=== PATIENT | female | born 1940 | race Caucasian/White ===

== ENCOUNTER 2017-10-27 17:28 | Inpatient (IN) ==
--- NOTE | 2017-10-27 18:00 | Emergency Department Note ---
Disposition Clinical Impression: Compression fracture Fall Qualifiers: Encounter type: initial encounter Qualified Code(s): W19.XXXA - Unspecified fall, initial encounter Dementia Qualifiers: Dementia type: unspecified type Dementia behavioral disturbance: without behavioral disturbance Qualified Code(s): F03.90 - Unspecified dementia without behavioral disturbance Disposition: Admitted As Inpatient Condition: Fair Time of Disposition: 20:00 Fall HPI - General Chief Complaint: ED Fall Stated Complaint: Fall Time Seen by Provider: 10/27/17 17:32 Source: EMS Mode of arrival: EMS Limitations: other (dementia) Nursing Notes Reviewed: Yes Vital Signs Reviewed: Yes - History of Present Illness Pt Subjective Complaint: fall Onset (ago): day(s) Fall From: other ([facility]) Fall Witnessed: no Place Fall Occurred: fdc/SNF Loss of Consciousness: unsure Prolonged Down Time?: unclear Symptoms Prior to Fall: other (No lightheadness. No dizziness ) Context: other (Pt unsure of context. Unsure if she tripped/slipped ) Quality: other Associated symptoms (after fall): Reports: chest pain ("little"), other ( Patient is NOT on anticoagulation medication. ). Denies: lightheaded - Related Data Previous Rx's Medication Instructions Recorded Lidocaine Patch [Lidoderm 5% patch] 1 each TP BID PRN #12 adh..patch 08/24/17 Allergies Allergy/AdvReac Type Severity Reaction Status Date / Time Penicillins Allergy See Verified 08/24/17 06:37 Comments morphine AdvReac See Verified 01/29/15 10:01 Comments Constitutional: Denies: fever, chills Cardiovascular: Reports: as per HPI, chest pain, other (falls) Respiratory: Denies: hemoptysis Gastrointestinal: Reports: diarrhea. Denies: hematemesis, melena, hematochezia Genitourinary: Reports: other (wears diapers ). Denies: hematuria Musculoskeletal: Reports: other (no hip pain) Integumentary: Reports: other (chronic psoriasis plaques ) Neurological: Reports: as per HPI, other (dementia. No tingling. Denies lightheadeness. Denies dizziness ). Denies: numbness Fall PMH - Past Medical History Medical history: Reports: cancer, GERD, hyperlipidemia, hypertension, thyroid disease Surgical history: Reports: cancer surgery Psychiatric history: Reports: no psych history PACKING ROOM SUPERVISOR history: Reports: no PACKING ROOM SUPERVISOR history - Social History Smoking Status: Former smoker Alcohol use: Reports: none Drug use: Reports: none Physical Exam - General Limitations: no limitations, altered mental status General appearance: alert, in no apparent distress - Expanded Head Exam Head exam physicial: Absent: laceration, abrasion, contusion, raccoon eyes, Smith's sign - Eye Eye exam: Present: PERRL, other (Full range of EOM. ) - Neck Neck exam: Present: full ROM. Absent: tenderness - Chest Chest inspection: Present: symmetric chest wall rise. Absent: tenderness - Respiratory Respiratory exam: Absent: respiratory distress, wheezes, accessory muscle use - Cardiovascular Cardiovascular exam: Present: normal rhythm, bradycardia, +S1, +S2 - Abdominal Exam Abdominal exam: Present: soft, Non-Tender, other (No flank echymossis b/l. ). Absent: guarding, rebound, rigidity - Extremities Exam Extremities exam: Present: normal capillary refill (capillary refill > 2 secons ), other (erythematous plaque with coarse scales). Absent: pedal edema - Neurological Exam Neurological exam: Present: other (Patient not following directions for assessment for PHAM or oustretching hand. Initial motion of PHAM slow, yet fluid, then patient progressing to clapping hands. Able to follow commands of holding extremities against gravity and resistance. ) - Expanded Neurological Exam Patient oriented to: Present: person Speech: Present: fluid speech Cranial nerves: EOM function (II, III, IV, ): Normal, spinal accessory function (XI): Normal, tongue deviation (XII): Normal Motor strength - LUE: 4/5 Motor strength - RUE: 4/5 Motor strength - LLE: 4/5 Motor strength - RLE: 4/5 Coma Scale Eye Opening: Spontaneous Coma Scale Motor Response: Obeys Commands Coma Scale Verbal Response: Oriented Coma Scale Total: 15 - Psychiatric Psychiatric exam: Present: normal affect Course Course Narrative: Course of Re-evaluations while in ED - Patient presents a significant fall risk , with last 3 falls at the assisted living care unwitnessed, per daughter-in law. Multiple risk factors including past history of a fall in cognitive impairment, patient on tramadol outpatient. As falls unwitnessed, unclear fall associated with syncopes. Imaging reviewed with attending and patients's POA. Due to elevated risk for recurrent falls, will consider hospitalization. Discussed with ISIDORO, son, he is amenable with hospitalization at this time. Patient is amenable to hospitalization as well. - Reevaluation(s) Reevaluation #1: approx 19:30 -20:00 Attending at bedside. Discussed recommendation for hospitalization, including review of placement. Patient and family amenable to hospitalizations. Vital Signs Temperature 98.6 F 10/27/17 17:32 Pulse Rate 57 10/27/17 17:32 Respiratory Rate 16 10/27/17 17:32 Blood Pressure 174/87 10/27/17 17:32 O2 Sat by Pulse Oximetry 94 10/27/17 17:32 Temperature 98.6 F 10/27/17 22:13 Pulse Rate 57 10/27/17 22:13 Respiratory Rate 14 10/27/17 22:13 Blood Pressure 171/82 10/27/17 22:13 O2 Sat by Pulse Oximetry 93 10/27/17 22:13 Oxygen Delivery Oxygen Delivery Room Air Fall - MDM Narrative Medical decision making narrative: 65-year-old female ascending following 3 falls within the last 24 hours. In ED , bradycardia noted. Multiple risk factors identified including past history of a fall in cognitive impairment, patient on tramadol as outpatient. As falls unwitnessed, unclear fall associated with syncopes. Radiologic imaging obtained due to patient unable to clearly state pain and recount episodes. Patient remains at elevated risk for falls, will require hospitalization. Discussed with ISIDORO, son, he is amenable with hospitalization at this time. Patient is amenable to hospitalization as well. - Lab Data Lab results reviewed: Yes I reviewed the patient's lab results. Result diagrams: 10/27/17 18:06 10/27/17 18:06 Lab Results 10/27/17 10/27/17 Range/Units 18:06 18:06 WBC 6.6 (4.3-11.1) K/mcL RBC 4.63 (3.82-4.97) M/mcL Hgb 13.8 (11.5-15.4) g/dL Hct 41.8 (35.3-44.9) % MCV 90.3 (83.0-100.0) fL MCH 29.8 (28.0-33.3) pg MCHC 33.0 (31.6-35.5) g/dL RDW 14.3 (11.5-14.5) % Plt Count 195 (140-400) K/mcL MPV 10.5 (9.4-12.4) fL Immature Gran % 0.3 (0-4) % Seg Neutrophils % 66.5 % Lymphocytes % 21.7 % Monocytes % 7.7 % Eosinophils % 3.3 % Basophils % 0.5 % Neutrophils # 4.4 (1.6-8.9) K/mcL Lymphocytes # 1.4 (0.6-4.6) K/mcL Monocytes # 0.5 (0.0-1.3) K/mcL Eosinophils # 0.2 (0.0-0.6) K/mcL Basophils # 0.0 (0.0-0.2) K/mcL Sodium 136 (136-145) mEq/L Potassium 4.0 (3.5-5.1) mEq/L Chloride 105 (98-107) mEq/L Carbon Dioxide 26 (23-29) mEq/L BUN 24 H (8-23) mg/dL Creatinine 0.80 (0.60-1.20) mg/dL Est GFR ( Amer) > 60 (> 60) Est GFR (Non-Af Amer) > 60 (> 60) BUN/Creatinine Ratio 30 H (6-26) Glucose 86 (70-105) mg/dL Calculated Osmolality 285 (280-300) Calcium 9.1 (8.6-10.3) mg/dL Troponin I < 0.03 (< 0.04) ng/mL - Radiology Data Radiology results reviewed: Yes I reviewed the patient's radiology results. Impressions Cervical Spine CT 10/27/17 17:54 IMPRESSION: 1. No evidence of an acute fracture in the cervical spine. D/ / 10/27/2017 19:01:22 Cruz Harris MD / terry Interpreting Provider: Cruz Harris MD Chest X-Ray 10/27/17 17:54 IMPRESSION: No convincing evidence for acute cardiopulmonary pathology. Retrocardiac bowel containing hernia. D/ / Gonzales Andrade MD / Gonzales Andrade MD Interpreting Provider: Gonzales Andrade MD Head CT 10/27/17 17:54 IMPRESSION: No acute intracranial abnormality. D/ / Albert Sparrow MD / Albert Sparrow MD Interpreting Provider: Albert Sparrow MD Hip/Pelvis X-Ray 10/27/17 17:54 IMPRESSION: 1. No evidence of an acute fracture in the pelvis. If pain persists, the patient may benefit from an MRI, as this is more sensitive for the detection of occult fractures in osteopenic patient's. 2. Chronic right superior and inferior pubic rami fractures. D/ / 10/27/2017 18:28:09 Cruz Harris MD / [facility] Interpreting Provider: Cruz Harris MD Lumbar Spine X-Ray 10/27/17 18:44 IMPRESSION: Moderate to marked anterior wedge compression fracture of L1 new from 10/20/2016 but unchanged from 10/04/2017. No definite acute fracture. Multilevel degenerative disc disease and facet arthropathy similar to the prior study. Multiple irregular calcifications in a linear configuration in the right abdomen are unchanged and likely represent gallstones. Gallstones were present on the last several scans obtained on a chest CT of 10/04/2017. D/ / Albert Sparrow MD / Albert Sparrow MD Interpreting Provider: Albert Sparrow MD Ribs X-Ray 10/27/17 18:44 IMPRESSION: 1. No evidence of a right-sided rib fracture. 2. Hiatal hernia. 3. Subacute L1 compression fracture. D/ / 10/27/2017 19:23:18 Cruz Harris MD / [facility] Interpreting Provider: Cruz Harris MD - EKG Data EKG attestation: Yes I reviewed and interpreted this EKG. EKG results narrative: 17:38:54 Sinus Bradycardia. Ventricular Rate 56. MI interval 160. QRS duration 140. QT/QTC 500/491 ms. Right bundle-branch block, seen on Old EKG reviewed as comparison. Reviewed with attending.
[2017-10-27 18:19] LABS: Basophils % 0.5 %; Eosinophils # 0.2 K/mcL (0.0-0.6); Eosinophils % 3.3 %; Hematocrit 41.8 % (35.3-44.9); Hemoglobin 13.8 g/dL (11.5-15.4); Immature Granulocytes % 0.3 % (0-4); Lymphocytes # 1.4 K/mcL (0.6-4.6); Lymphocytes % 21.7 %; Mean Corpuscular Hemoglobin 29.8 pg (28.0-33.3); Mean Corpuscular Volume 90.3 fL (83.0-100.0); Mean Platelet Volume 10.5 fL (9.4-12.4); Monocytes # 0.5 K/mcL (0.0-1.3); Monocytes % 7.7 %; Neutrophils # 4.4 K/mcL (1.6-8.9); Platelet Count 195 K/mcL (140-400); Red Blood Count 4.63 M/mcL (3.82-4.97); Red Cell Distribution Width 14.3 % (11.5-14.5); Segmented Neutrophils % 66.5 %
[2017-10-27 18:42] LABS: BUN/Creatinine Ratio 30 (6-26); Blood Urea Nitrogen 24 mg/dL (8-23); Calcium 9.1 mg/dL (8.6-10.3); Carbon Dioxide 26 mEq/L (23-29); Chloride 105 mEq/L (98-107); Glucose 86 mg/dL (70-105); Osmolality,Calculated 285 (280-300); Sodium 136 mEq/L (136-145); eGFR For African Americans > 60 (> 60); eGFR For Non-African Americans > 60 (> 60)
--- NOTE | 2017-10-27 18:48 | Emergency Department Note ---
Disposition Clinical Impression: Fall Qualifiers: Encounter type: initial encounter Qualified Code(s): W19.XXXA - Unspecified fall, initial encounter Disposition: Still a Patient Referrals: Chris Bhatti MD [Primary Care Provider] - Forms: ED Satisfaction Letter General Adult HPI - General Chief complaint: ED Fall Stated complaint: Fall Time Seen by Provider: 10/27/17 17:32 Source: EMS Mode of arrival: EMS Limitations: no limitations, altered mental status - History of Present Illness Pain Scale: 0 - Related Data Previous Rx's Medication Instructions Recorded Lidocaine Patch [Lidoderm 5% patch] 1 each TP BID PRN #12 adh..patch 08/24/17 Allergies Allergy/AdvReac Type Severity Reaction Status Date / Time Penicillins Allergy See Verified 08/24/17 06:37 Comments morphine AdvReac See Verified 01/29/15 10:01 Comments Past Medical History - Past Medical History Medical history: Reports: cancer, GERD, hyperlipidemia, hypertension, thyroid disease Surgical history: Reports: cancer surgery Psychiatric history: Reports: no psych history TEXTILE STYLIST history: Reports: no TEXTILE STYLIST history - Social History Smoking Status: Former smoker Smokeless Tobacco Status: No Alcohol use: Reports: none Drug use: Reports: none Physical Exam - General Limitations: no limitations, altered mental status General appearance: alert, in no apparent distress Course - Reevaluation(s) Reevaluation #1: ATTESTATION NOTE I examined this patient and my medical decision-making was reviewed with the PROPERTY SUPERVISOR/PA/Advanced Practice Nurse/Resident Physician. I agree with the documented findings, disposition and treatment plan as described except to the extent set forth below. ED attending note: Patient seen with PGY1 RESIDENT DR. BEACH. We independently evaluated the patient. We independently had [id number] contact with the patient. Please see a copy of his note for details of the history and physical, evaluation, management and disposition of this emergency Department patient. Briefly: 69-year-old female for by EMS from assisted facility with a history of baseline dementia had a mechanical fall unwitnessed 3 but to her last week bolus today signs of trauma although she does have a little bit of tenderness in her right rib area Patient will get a ct scan of the head neck lumbar spine x-ray showed we will little tender areas at the maximum curvature of her kyphosis although there is no signs of any erythema or skin necrosis. patient undergoing ed workup. disposition pending. Time: 18:46 Vital Signs Temperature 98.6 F 10/27/17 17:32 Pulse Rate 57 10/27/17 17:32 Respiratory Rate 16 10/27/17 17:32 Blood Pressure 174/87 10/27/17 17:32 O2 Sat by Pulse Oximetry 94 10/27/17 17:32 Temperature 98.6 F 10/27/17 17:32 Pulse Rate 57 10/27/17 17:32 Respiratory Rate 16 10/27/17 17:32 Blood Pressure 174/87 10/27/17 17:32 O2 Sat by Pulse Oximetry 94 10/27/17 17:32 Oxygen Delivery Oxygen Delivery Room Air Medical Decision Making - Lab Data Result diagrams: 10/27/17 18:06 10/27/17 18:06 Lab Results 10/27/17 10/27/17 Range/Units 18:06 18:06 WBC 6.6 (4.3-11.1) K/mcL RBC 4.63 (3.82-4.97) M/mcL Hgb 13.8 (11.5-15.4) g/dL Hct 41.8 (35.3-44.9) % MCV 90.3 (83.0-100.0) fL MCH 29.8 (28.0-33.3) pg MCHC 33.0 (31.6-35.5) g/dL RDW 14.3 (11.5-14.5) % Plt Count 195 (140-400) K/mcL MPV 10.5 (9.4-12.4) fL Immature Gran % 0.3 (0-4) % Seg Neutrophils % 66.5 % Lymphocytes % 21.7 % Monocytes % 7.7 % Eosinophils % 3.3 % Basophils % 0.5 % Neutrophils # 4.4 (1.6-8.9) K/mcL Lymphocytes # 1.4 (0.6-4.6) K/mcL Monocytes # 0.5 (0.0-1.3) K/mcL Eosinophils # 0.2 (0.0-0.6) K/mcL Basophils # 0.0 (0.0-0.2) K/mcL Sodium 136 (136-145) mEq/L Potassium 4.0 (3.5-5.1) mEq/L Chloride 105 (98-107) mEq/L Carbon Dioxide 26 (23-29) mEq/L BUN 24 H (8-23) mg/dL Creatinine 0.80 (0.60-1.20) mg/dL Est GFR ( Amer) > 60 (> 60) Est GFR (Non-Af Amer) > 60 (> 60) BUN/Creatinine Ratio 30 H (6-26) Glucose 86 (70-105) mg/dL Calculated Osmolality 285 (280-300) Calcium 9.1 (8.6-10.3) mg/dL
[2017-10-27 18:49] LABS: Troponin I < 0.03 ng/mL (< 0.04)
[2017-10-27] MEDS ORDERED: *HR* FentaNYL (PF) 100 MCG/2 ML VIAL IVP ONE (20:35)
[2017-10-27] MEDS ORDERED: Naloxone 0.4 MG/ML INJ IVP PRN (22:12)
--- NOTE | 2017-10-27 22:16 | Internal Med History&Physical ---
Date of Encounter: 10/27/17 Time of Encounter: 21:30 Internal Medicine - H&P: HPI Chief complaint: Frequent falls Admitted From: Emergency Dept Plans for Post Hospital Care: Transfer [facility]irement Facility History of present illness: Ms. Valdovinos is a 77 year old female with dementia, who was sent from assisted living facility due to recurrent multiple falls. Patient cannot provide much history due to dementia, she does not remember much of her medical history, cannot remember where she lives. She reports she is here because she has been falling a lot lately, does not know why. Denies chest pain, dyspnea, cough, fever/chills. No back pain. Past Med Surg Social Fam HX - Past Medical History Source: old records reviewed Medical history: cancer, dementia, GERD, hyperlipidemia, hypertension, thyroid disease Psychiatric history: no psych history - Past Surgical History Surgical History: no surgical history (cannot be obtained due to patient;s mental status), cancer surgery - Social History Smoking Status: Former smoker Smokeless Tobacco Status: No Alcohol use: none Drug use: none Occupational status: retired Current living situation: Assisted Living Activity Level: Uses cane/walker Recent Out of Country Travel Within the Last 8 Weeks: No Exposure or Possible Exposure to Illness During Travel: No - Additional Family History Additional family history: cannot be obtained due to patient;s mental status Internal Medicine - H&P: Meds Donepezil HCl [Aricept] 10 mg PO BID 10/27/17 [History] LORazepam [Ativan] 0.5 mg PO BID PRN 10/27/17 [History] Levothyroxine [Synthroid] 75 mcg PO 0630 10/27/17 [History] Loratadine [Claritin] 10 mg PO DAILY 10/27/17 [History] Losartan Potassium [Cozaar] 100 mg PO DAILY 10/27/17 [History] Meloxicam [Mobic] 7.5 mg PO BID 10/27/17 [History] Memantine HCl 10 mg PO BID 10/27/17 [History] Montelukast [Singulair] 10 mg PO HS 10/27/17 [History] Tramadol HCl [Ultram] 50 mg PO BID PRN 10/27/17 [History] 3 Allergy/AdvReac Type Severity Reaction Status Date / Time Penicillins Allergy See Verified 08/24/17 06:37 Comments morphine AdvReac See Verified 01/29/15 10:01 Comments All Systems PM: A 10-system review of systems was performed and is negative for pertinent findings except as documented above in the HPI. - Constitutional Constitutional: falls, weakness, no chills, no fever(s), no night sweats - EENT Eyes: no change in vision, no discharge, no pain, no photophobia Ears: no ear discharge, no ear pain, no tinnitus Nose, mouth and throat: no dysphagia, no nasal discharge, no neck pain, no sore throat - Cardiovascular Cardiovascular ROS IM: no chest pain, no diaphoresis, no dyspnea, no lightheadedness, no palpitations, no syncope - Respiratory Respiratory: no cough, no dyspnea, no wheezing, no excessive phlegm production - Gastrointestinal Gastrointestinal: no abdominal pain, no diarrhea, no hematemesis, no hematochezia, no melena, no nausea, no vomiting - Genitourinary Genitourinary: no change in urinary stream, no dysuria, no flank pain, no hematuria - Musculoskeletal Musculoskeletal ROS IM: no numbness, no tingling - Integumentary Integumentary IM: no rash, no unusual bruising - Neurological Neurological ROS: frequent falls, no confusion, no convulsions, no focal weakness, no numbness, no tingling, no tremor(s) - Hematologic/Lymphatic Hematologic/Lymphatic: no easy bruising - Constitutional Vitals: Temp Pulse Resp BP Pulse Ox 98.6 F 57 14 171/82 93 10/27/17 22:13 10/27/17 22:13 10/27/17 22:13 10/27/17 22:13 10/27/17 22:13 General appearance: Present: A&O X 1. Absent: answers questions appropriately - Respiratory Respiratory exam: Present: CTAB. Absent: accessory muscle use, rales, rhonchi, wheezes - Cardiovascular Cardiovascular exam: Present: RRR, +S1, +S2. Absent: diastolic murmur, gallop, rubs, systolic murmur - GI/Abdominal GI/Abdominal exam: Present: normal bowel sounds, soft, no peritoneal signs. Absent: distended, tenderness - Extremities Exam Extremities exam: Present: full ROM, warm, radial pulses palpable and symmetrical. Absent: calf tenderness, cyanotic, pedal edema - Neurological Exam Neurological exam: Present: altered, CN II-XII intact, no focal deficits. Absent: pronater drift, facial droop, speech deficit - Skin Skin exam: Present: dry, excoriation (B/L anterior legs with dry skin and eczema ), intact Internal Med - H&P Results - Labs CBC & Chem 7: 18 18:06 10/27/17 18:06 - EKG Data -: EKG Interpreted by Myself EKG shows normal: sinus rhythm Rate: bradycardia (RBBB) - Assessment and plan (1) Fall Current Visit: Yes Status: Acute Assessment and plan: recurrent falls, likely due to weakness and instability due to elderly age and dementia; PT/OT evaluation; fall precautions and supportive care; Qualifiers: Encounter type: initial encounter Qualified Code(s): W19.XXXA - Unspecified fall, initial encounter (2) Compression fracture Current Visit: Yes Status: Acute Assessment and plan: Lumbar spine XRay shows subacute L1 compression fracture; patient may require TLSO brace; will consult spine surgery; pain control with PRN Tramadol and Percocet; PT/OT consults; (3) Hypothyroidism Current Visit: Yes Status: Chronic Assessment and plan: resume Levothyroxine; Qualifiers: Hypothyroidism type: unspecified Qualified Code(s): E03.9 - Hypothyroidism , unspecified (4) Essential hypertension Current Visit: Yes Status: Chronic Assessment and plan: BP elevated; resume Losartan with stat dosing; will use PRN IV Hydralazine for appropriate BP control; (5) Dementia Current Visit: Yes Status: Chronic Assessment and plan: continue home meds; supportive care and fall precautions; Qualifiers: Dementia type: Alzheimer's disease Alzheimer's disease onset: late-onset Dementia behavioral disturbance: without behavioral disturbance Qualified Code (s): G30.1 - Alzheimer's disease with late onset; F02.80 - Dementia in other diseases classified elsewhere without behavioral disturbance; F02.80 - Dementia in other diseases classified elsewhere without behavioral disturbance; F02.80 - Dementia in other diseases classified elsewhere without behavioral disturbance - Time Spent With Patient Total time spent is greater than 50% in coordination of care (as documented) at patient's floor/unit and/or counseling patient:
[2017-10-28] MEDS: traMADol 50 MG TABLET PO PRN ×2 (00:01→12:06)
[2017-10-28] MEDS ORDERED: *HR* OxyCODONE/APAP 5/325 TABLET PO ONE (00:45)
[2017-10-28 05:58] LABS: Basophils % 0.5 %; Eosinophils # 0.2 K/mcL (0.0-0.6); Eosinophils % 3.2 %; Hematocrit 42.3 % (35.3-44.9); Hemoglobin 13.7 g/dL (11.5-15.4); Immature Granulocytes % 0.2 % (0-4); Lymphocytes # 1.4 K/mcL (0.6-4.6); Lymphocytes % 23.2 %; Mean Corpuscular HGB Conc 32.4 g/dL (31.6-35.5); Mean Corpuscular Hemoglobin 29.1 pg (28.0-33.3); Mean Platelet Volume 10.6 fL (9.4-12.4); Monocytes # 0.5 K/mcL (0.0-1.3); Monocytes % 8.8 %; Platelet Count 178 K/mcL (140-400); Red Cell Distribution Width 14.2 % (11.5-14.5); Segmented Neutrophils % 64.1 %
[2017-10-28 06:17] LABS: BUN/Creatinine Ratio 28 (6-26); Blood Urea Nitrogen 19 mg/dL (8-23); Calcium 8.9 mg/dL (8.6-10.3); Carbon Dioxide 26 mEq/L (23-29); Chloride 105 mEq/L (98-107); Glucose 83 mg/dL (70-105); Osmolality,Calculated 285 (280-300); Potassium 3.8 mEq/L (3.5-5.1); Sodium 137 mEq/L (136-145); eGFR For African Americans > 60 (> 60); eGFR For Non-African Americans > 60 (> 60)
[2017-10-28] MEDS: *HR* LORazepam 0.5 MG TABLET PO PRN ×2 (08:25→20:19)
--- NOTE | 2017-10-28 15:18 | Pain Management History & Phys ---
Date of Encounter: 10/28/17 Time of Encounter: 15:08 Assessment and Plan (1) Compression fracture Current Visit: Yes Status: Acute The assessment and plan as outlined above was discussed with the patient and/or family members who expressed understanding and agreement. All questions were answered. At this time the patient seems to be maintaining. The patient ambulates with assist but is a fall risk. Due to the nature and extent of the patient's thoracic and lumbar scoliosis with prominent bony landmarks in the thoracic lumbar junction, I am concerned that using a brace would create areas of focal compression leading to formation of decubitus ulcers/skin breakdown. My recommendations at this time are to undergo gentle therapy much to the extent of essentially maintaining some activity as well as pain control with oral pain medication during the patient's recovery. The patient will heal over time, and in the absence of new or fractures, the patient would likely resolve from a pain standpoint over the next several weeks. It already appears that the patient seems to be tolerating basic ADLs at this time. It is understood that this discussion is based on conversation with the family as the patient suffers from dementia it did not seem to fully understand what I was saying and appeared towards the end of the conversation slightly withdrawn. History of Present Illness Chief complaint: back pain HPI: Ms. Valdovinos is a 77 year old female who presents today for evaluation as an inpatient consultation for back pain. The patient has mild to moderate mid to low back pain and known long-standing history of back pain. The patient has had multiple falls culminating in a new or injury recently. The patient is a poor historian as the patient suffers from dementia and is being evaluated today in the presence of her son and daughter who assist with the history. The patient has had a long history of back pain and finds that she walks significantly hunched over. Over time the hunched has worsened whereby the patient does get around somewhat okay with a walker. It is not clear if the pain is radiating. The consultation today is focused on whether or not the patient would benefit from a TLSO brace Past Med Surg Social Fam HX - Past Medical History Medical history: cancer, dementia, GERD, hyperlipidemia, hypertension, thyroid disease Psychiatric history: no psych history - Past Surgical History Surgical History: no surgical history (cannot be obtained due to patient;s mental status), cancer surgery - Social History Smoking Status: Former smoker Smokeless Tobacco Status: No Alcohol use: none Drug use: none Medications and Allergies Donepezil HCl [Aricept] 10 mg PO BID 10/27/17 [History] LORazepam [Ativan] 0.5 mg PO BID PRN 10/27/17 [History] Levothyroxine [Synthroid] 75 mcg PO 0630 10/27/17 [History] Loratadine [Claritin] 10 mg PO DAILY 10/27/17 [History] Losartan Potassium [Cozaar] 100 mg PO DAILY 10/27/17 [History] Meloxicam [Mobic] 7.5 mg PO BID 10/27/17 [History] Memantine HCl 10 mg PO BID 10/27/17 [History] Montelukast [Singulair] 10 mg PO HS 10/27/17 [History] Tramadol HCl [Ultram] 50 mg PO BID PRN 10/27/17 [History] Escitalopram [Lexapro] 10 mg PO DAILY 10/28/17 [History] Loperamide [Imodium] 2 mg PO Q6H PRN 10/28/17 [History] Quetiapine Fumarate [SEROquel] 25 mg PO HS 10/28/17 [History] Sertraline [Zoloft] 25 mg PO DAILY 10/28/17 [History] 3 Allergy/AdvReac Type Severity Reaction Status Date / Time Penicillins Allergy See Verified 10/28/17 11:12 Comments morphine AdvReac See Verified 10/28/17 11:12 Comments Review of Systems ROS unobtainable: due to mental status - Musculoskeletal Musculoskeletal ROS: as per HPI (abnormal gait), abnormal gait - Integumentary Integumentary: lesions - Psychiatric Psychiatric general: confusion Physical Exam Initial Vital Signs Temp Pulse Resp BP Pulse Ox 98.6 F 57 16 174/87 94 10/27/17 17:32 10/27/17 17:32 10/27/17 17:32 10/27/17 17:32 10/27/17 17:32 - General physical appearance General physical appearance: other, moderate pain - Eyes Eye exam: normal ocular movement - Neck trachea midline - Respiratory normal respiratory effort - Integumentary Integumentary general surgery: other (LE rash) - Neurologic confused, disoriented, memory loss - Musculoskeletal Musculoskeletal: kyphosis, scoliosis, other - Psychiatric Psychiatric: other (Not oriented to place and time) Results - Labs 10/28/17 05:23 10/28/17 05:23 Abnormal lab results BUN/Creatinine Ratio 28 (6-26) H 10/28/17 05:23 Diabetes panel 10/28/17 Range/Units 05:23 Sodium 137 (136-145) mEq/L Potassium 3.8 (3.5-5.1) mEq/L Chloride 105 (98-107) mEq/L Carbon Dioxide 26 (23-29) mEq/L BUN 19 (8-23) mg/dL Creatinine 0.69 (0.60-1.20) mg/dL Glucose 83 (70-105) mg/dL Calcium 8.9 (8.6-10.3) mg/dL Calcium panel 10/28/17 Range/Units 05:23 Calcium 8.9 (8.6-10.3) mg/dL Pituitary panel 10/28/17 Range/Units 05:23 Sodium 137 (136-145) mEq/L Potassium 3.8 (3.5-5.1) mEq/L Chloride 105 (98-107) mEq/L Carbon Dioxide 26 (23-29) mEq/L BUN 19 (8-23) mg/dL Creatinine 0.69 (0.60-1.20) mg/dL Glucose 83 (70-105) mg/dL Calcium 8.9 (8.6-10.3) mg/dL Adrenal panel 10/28/17 Range/Units 05:23 Sodium 137 (136-145) mEq/L Potassium 3.8 (3.5-5.1) mEq/L Chloride 105 (98-107) mEq/L Carbon Dioxide 26 (23-29) mEq/L BUN 19 (8-23) mg/dL Creatinine 0.69 (0.60-1.20) mg/dL Glucose 83 (70-105) mg/dL Calcium 8.9 (8.6-10.3) mg/dL All other labs normal. - Imaging Additional studies: Lumbar XR 10/27 consistent with L1 compression fracture
--- NOTE | 2017-10-28 17:02 | Internal Med Progress Note ---
Date of Encounter: 10/28/17 Time of Encounter: 17:00 - Assessment and plan (1) Fall Current Visit: Yes Status: Acute Assessment and plan: Patient is being referred because due to weakness and instability. Also of note the patient is demented and very spontaneous. PT/OT evaluation finds that the patient is a safety risk due to gait instability and spontaneity. Per the recommendation the patient would benefit from SNF placement over the family is refusing this at this time. Continue falls precautions and supportive care Qualifiers: Encounter type: initial encounter Qualified Code(s): W19.XXXA - Unspecified fall, initial encounter (2) Compression fracture Current Visit: Yes Status: Acute Assessment and plan: Lumbar spine XRay shows subacute L1 compression fracture Dr. Alejandra consulted-does not recommended TLSO brace at this time due to risk for formation of decubitus ulcers and skin breakdown The patient is still able to ambulate at this time, Dr. Alejandra's recommendations are for gentle physical and occupational therapy and to control pain PT/OT consulted- patient was found to be impulsive and required a lot of assistance with balance and transfer. Per physical therapy and occupational therapy's recommendation the patient would benefit from SNF placement but again family is against this at this time (3) Dementia Current Visit: Yes Status: Chronic Assessment and plan: History of dementia. Lives at assisted living facility. Patient reporting any further decline The patient is at risk for additional falls with further injury) benefit from at least temporary rehabilitation placement; however family is against this. They wish for her to return to [facility] living. continue home meds; supportive care and fall precautions Qualifiers: Dementia type: Alzheimer's disease Alzheimer's disease onset: late-onset Dementia behavioral disturbance: without behavioral disturbance Qualified Code (s): G30.1 - Alzheimer's disease with late onset; F02.80 - Dementia in other diseases classified elsewhere without behavioral disturbance; F02.80 - Dementia in other diseases classified elsewhere without behavioral disturbance; F02.80 - Dementia in other diseases classified elsewhere without behavioral disturbance (4) Hypothyroidism Current Visit: Yes Status: Chronic Assessment and plan: Continue Levaquin Qualifiers: Hypothyroidism type: unspecified Qualified Code(s): E03.9 - Hypothyroidism , unspecified (5) Essential hypertension Current Visit: Yes Status: Chronic Assessment and plan: BP has improved, continue Losartan . And continue IV hydralazine when necessary - Time Spent With Patient Total time spent is greater than 50% in coordination of care (as documented) at patient's floor/unit and/or counseling patient: Greater than 35 minutes - Subjective Interval history: 77-year-old female with history of dementia sent from assisted living facility due to recurrent multiple falls resulting in injury. Patient's family is at bedside reports that the patient has had increasing weakness fatigue and difficulty ambulating. This has continued throughout the stay. - Constitutional Vitals: Temp Pulse Resp BP Pulse Ox 98.6 F 65 14 129/66 93 10/28/17 15:38 10/28/17 15:38 10/28/17 15:38 10/28/17 15:38 10/28/17 15:38 General appearance: Present: A&O X 1. Absent: answers questions appropriately - Head Head exam: Present: atraumatic, normocephalic - Respiratory Respiratory exam: Present: CTAB. Absent: accessory muscle use, rales, rhonchi, wheezes - Cardiovascular Cardiovascular exam: Present: RRR, +S1, +S2. Absent: diastolic murmur, gallop, rubs, systolic murmur - GI/Abdominal GI/Abdominal exam: Present: normal bowel sounds, soft, no peritoneal signs. Absent: distended, tenderness - Extremities Exam Extremities exam: Present: warm, radial pulses palpable and symmetrical. Absent : calf tenderness, cyanotic, pedal edema - Neurological Exam Neurological exam: Present: alert (But confused). Absent: facial droop, speech deficit Internal Medicine: Result - Labs CBC & Chem 7: 10/28/17 05:23 10/28/17 05:23 Labs: Short CBC 10/28/17 Range/Units 05:23 WBC 6.2 (4.3-11.1) K/mcL Hgb 13.7 (11.5-15.4) g/dL Hct 42.3 (35.3-44.9) % Plt Count 178 (140-400) K/mcL Neutrophils # 4.0 (1.6-8.9) K/mcL BMP 10/28/17 05:23 Sodium 137 Potassium 3.8 Chloride 105 Carbon Dioxide 26 BUN 19 Creatinine 0.69 Glucose 83 Calcium 8.9 - Impressions Impressions Cervical Spine CT 10/27/17 17:54 IMPRESSION: 1. No evidence of an acute fracture in the cervical spine. D/ / 10/27/2017 19:01:22 Cruz Harris MD / terry Interpreting Provider: Cruz Harris MD Chest X-Ray 10/27/17 17:54 IMPRESSION: No convincing evidence for acute cardiopulmonary pathology. Retrocardiac bowel containing hernia. D/ / Gonzales Andrade MD / Gonzales Andrade MD Interpreting Provider: Gonzales Andrade MD Head CT 10/27/17 17:54 IMPRESSION: No acute intracranial abnormality. D/ / Albert Sparrow MD / Albert Sparrow MD Interpreting Provider: Albert Sparrow MD Hip/Pelvis X-Ray 10/27/17 17:54 IMPRESSION: 1. No evidence of an acute fracture in the pelvis. If pain persists, the patient may benefit from an MRI, as this is more sensitive for the detection of occult fractures in osteopenic patient's. 2. Chronic right superior and inferior pubic rami fractures. D/ / 10/27/2017 18:28:09 Cruz Harris MD / ramakrishna Interpreting Provider: Cruz Harris MD Lumbar Spine X-Ray 10/27/17 18:44 IMPRESSION: Moderate to marked anterior wedge compression fracture of L1 new from 10/20/2016 but unchanged from 10/04/2017. No definite acute fracture. Multilevel degenerative disc disease and facet arthropathy similar to the prior study. Multiple irregular calcifications in a linear configuration in the right abdomen are unchanged and likely represent gallstones. Gallstones were present on the last several scans obtained on a chest CT of 10/04/2017. D/ / Albert Sparrow MD / Albert Sparrow MD Interpreting Provider: Albert Sparrow MD Ribs X-Ray 10/27/17 18:44 IMPRESSION: 1. No evidence of a right-sided rib fracture. 2. Hiatal hernia. 3. Subacute L1 compression fracture. D/ / 10/27/2017 19:23:18 Cruz Harris MD / [facility] Interpreting Provider: Cruz Harris MD Consult Discharge Plan - Plan Referrals: Gabriela Puri DO [Partnered Physician] - Chris Bhatti MD [Primary Care Provider] -
[2017-10-28] MEDS ORDERED: Naloxone 0.4 MG/ML INJ IVP PRN (18:43)
--- NOTE | 2017-10-29 06:20 | Electrocardiograph Report ---
[address] [address] Test Date: 2017-10-27 Pat Name: Demi Valdovinos Department: 102 Room: 3B21 Gender: F Verification Specialist: Hunter : 1940 Requested By: Margaux Simpson Order Number: [id number] Reading MD: Luis A Naidu Measurements Intervals [place] Rate: 56 P: 55 VT: 160 QRS: 20 QRSD: 140 T: 12 QT: 500 QTc: 491 Interpretive Statements SINUS BRADYCARDIA LEFT ATRIAL ENLARGEMENT INDETERMINATE AXIS RIGHT BUNDLE BRANCH BLOCK Electronically Signed On 10-29-2017 6:18:51 EDT by Luis A Naidu
[2017-10-29] MEDS: *HR* LORazepam 0.5 MG TABLET PO PRN (07:32)
--- NOTE | 2017-10-29 09:50 | Internal Med Progress Note ---
Date of Encounter: 10/29/17 Time of Encounter: 07:10 - Assessment and plan (1) Fall Current Visit: Yes Status: Acute Assessment and plan: Patient is being referred due to weakness and gait instability. Also of note the patient is demented and very spontaneous. PT/OT evaluation finds that the patient is a safety risk due to gait instability and spontaneity. Per the recommendation the patient would benefit from SNF placement over the family is refusing this at this time. Continue falls precautions and supportive care, continue physical and occupational therapy while inpatient Qualifiers: Encounter type: initial encounter Qualified Code(s): W19.XXXA - Unspecified fall, initial encounter (2) Compression fracture Current Visit: Yes Status: Acute Assessment and plan: Lumbar spine XRay shows subacute L1 compression fracture Cannot tolerate TLSO brace at this time due to risk for formation of decubitus ulcers and skin breakdown BLE weakness not progressing, continues to have gait difficulties due to weakness and The patient is still able to ambulate at this time, Dr. Alejandra's saw the patient yesterday and recommendations are for gentle physical and occupational therapy and to control pain PT/OT consulted- patient was found to be impulsive and required a lot of assistance with balance and transfer. Per physical therapy and occupational therapy's recommendation the patient would benefit from SNF placement but again family is against this at this time Approval returned to [facility] still pending. Patient will likely not discharge until Tuesday (3) Dementia Current Visit: Yes Status: Chronic Assessment and plan: Lives at assisted living facility, currently at baseline. We will discharged to [facility] with [facility] The patient is at risk for additional falls with further injury) benefit from at least temporary rehabilitation placement; however family is against this. They wish for her to return to [facility] living. continue home meds; supportive care and fall precautions Qualifiers: Dementia type: Alzheimer's disease Alzheimer's disease onset: late-onset Dementia behavioral disturbance: without behavioral disturbance Qualified Code (s): G30.1 - Alzheimer's disease with late onset; F02.80 - Dementia in other diseases classified elsewhere without behavioral disturbance; F02.80 - Dementia in other diseases classified elsewhere without behavioral disturbance; F02.80 - Dementia in other diseases classified elsewhere without behavioral disturbance (4) Hypothyroidism Current Visit: Yes Status: Chronic Assessment and plan: Continue levothyroxine Qualifiers: Hypothyroidism type: unspecified Qualified Code(s): E03.9 - Hypothyroidism , unspecified (5) Essential hypertension Current Visit: Yes Status: Chronic Assessment and plan: Hypertensive episodes throughout the night with SBP in the 170s-180s. Uncontrolled on monotherapy with ARB. Adding 5 mg Norvasc daily And continue IV hydralazine when necessary for SBP greater than 160. Continue to closely monitor hemodynamic status - Time Spent With Patient Total time spent is greater than 50% in coordination of care (as documented) at patient's floor/unit and/or counseling patient: 25 - 35 minutes - Subjective Interval history: 77-year-old female with history of dementia sent from assisted living facility due to recurrent multiple falls resulting in injury. Patient's family is at bedside reports that the patient has had increasing weakness fatigue and difficulty ambulating. Patient has subacute L1 compression fracture. Weakness has persisted but is not progressing. Awaiting approval for DC to [facility] with [facility] and independent living. Patient will likely not DC till Tuesday - Constitutional Vitals: Temp Pulse Resp BP Pulse Ox 98.4 F 62 17 158/87 96 10/29/17 07:56 10/29/17 07:56 10/29/17 07:56 10/29/17 09:18 10/29/17 07:56 General appearance: Present: A&O X 1. Absent: answers questions appropriately - Head Head exam: Present: atraumatic, normocephalic - Eye Eye exam: Present: PERRL, conjuntiva pink, sclera anicteric Pupils: Present: PERRL - Neck Neck exam general surgery: Present: supple, trachea midline. Absent: lymphadenopathy - Respiratory Respiratory exam: Present: CTAB. Absent: accessory muscle use, rales, rhonchi, wheezes - Cardiovascular Cardiovascular exam: Present: RRR, +S1, +S2. Absent: diastolic murmur, gallop, rubs, systolic murmur - GI/Abdominal GI/Abdominal exam: Present: normal bowel sounds, soft, no peritoneal signs. Absent: distended, tenderness - Extremities Exam Extremities exam: Present: warm, radial pulses palpable and symmetrical. Absent : calf tenderness, cyanotic, pedal edema - Neurological Exam Neurological exam: Present: alert, CN II-XII intact, oriented X3, no focal deficits. Absent: pronater drift, facial droop, speech deficit - Expanded Neurological Exam Neuro motor strength exam: LLE: 4 (Bilateral lower extremity weakness), RLE: 4 - Skin Skin exam: Present: dry, intact - Other Additional findings: Continues to have B/L lower extremity weakness. Weakness has not progressed throughout the stay. Internal Medicine: Result - Labs CBC & Chem 7: 10/28/17 05:23 18 05:23 Consult Discharge Plan - Plan Referrals: Gabriela Puri DO [Partnered Physician] - Chris Bhatti MD [Primary Care Provider] -
[2017-10-29] MEDS: amLODIPine 5 MG TABLET PO SCH (12:12)
[2017-10-29] MEDS: hydroCHLOROthiazide 25 MG TABLET PO SCH (16:50)
[2017-10-29] MEDS: traMADol 50 MG TABLET PO PRN (18:01)
[2017-10-29] MEDS: Acetaminophen 325 MG TABLET PO PRN (21:06)
[2017-10-30] MEDS: Acetaminophen 325 MG TABLET PO PRN (04:44)
[2017-10-30] MEDS: hydroCHLOROthiazide 25 MG TABLET PO SCH (09:22)
[2017-10-30] MEDS: amLODIPine 5 MG TABLET PO SCH (09:23)
--- NOTE | 2017-10-30 09:40 | Internal Med Progress Note ---
Date of Encounter: 10/30/17 Time of Encounter: 09:00 - Assessment and plan (1) Fall Current Visit: Yes Status: Acute Assessment and plan: History of multiple falls, most recently resulting in L-spine subacute compression fracture. Initial antigens were for patient to return to assisted living at [facility]. I was very clear that I did not think that this was the best for the patient due to safety issues and high risk for falls. Due to her dementia, spontaneity and multiple fall history this was thought to be an unsafe situation. However, the son was very adamant about wanting the patient to return to assisted living. I spoke with the greenhouse assistant director who reevaluated the patient last night and also deemed she is not a candidate for assisted living. Plan is for discharge to [facility] pending approval. History of multiple falls Frail elderly female with dementia Continue to have functional decline Most recent fall resulted in L-spine compression fracture Dr. Alejandra has seen the patient and signed off; recommendations for physical therapy and pain management; not a candidate for TLSO brace PT/OT recommendations for SNF Initially the POA (son) did not want the patient going to SNF. SAFETY INSTRUCTION POLICE OFFICER, and myself have spoken with the POA and the patient was cleared to go back to [facility]. Continue PT/OT Continue falls precautions and supportive care, continue physical and occupational therapy while inpatient Qualifiers: Encounter type: initial encounter Qualified Code(s): W19.XXXA - Unspecified fall, initial encounter (2) Compression fracture Current Visit: Yes Status: Acute Assessment and plan: Lumbar spine XRay shows subacute L1 compression fracture Cannot tolerate TLSO brace at this time due to risk for formation of decubitus ulcers and skin breakdown Dr. Alejandra has seen the patient and signed off; recommendations for pain control and physical therapy Continue PT (3) Dementia Current Visit: Yes Status: Chronic Assessment and plan: Anxious this morning Also appears to be depressed History of anxiety and depression She has not been taking her doses of Lexapro, Seroquel and Prozac since admission resume Lexapro, Seroquel and Prozac and continue to monitor psychological status Qualifiers: Dementia type: Alzheimer's disease Alzheimer's disease onset: late-onset Dementia behavioral disturbance: without behavioral disturbance Qualified Code (s): G30.1 - Alzheimer's disease with late onset; F02.80 - Dementia in other diseases classified elsewhere without behavioral disturbance; F02.80 - Dementia in other diseases classified elsewhere without behavioral disturbance; F02.80 - Dementia in other diseases classified elsewhere without behavioral disturbance (4) Hypothyroidism Current Visit: Yes Status: Chronic Assessment and plan: Continue levothyroxine Qualifiers: Hypothyroidism type: unspecified Qualified Code(s): E03.9 - Hypothyroidism , unspecified (5) Essential hypertension Current Visit: Yes Status: Chronic Assessment and plan: Improving, stable today. Continue HTN medication regimen. (6) Anxiety Current Visit: Yes Status: Acute - Time Spent With Patient Total time spent is greater than 50% in coordination of care (as documented) at patient's floor/unit and/or counseling patient: 25 - 35 minutes - Subjective Interval history: 77-year-old female with history of dementia sent from assisted living facility due to recurrent multiple falls resulting in injury. Patient's family is at bedside reports that the patient has had increasing weakness fatigue and difficulty ambulating. Patient has subacute L1 compression fracture. Weakness has persisted but is not progressing. Patient weepy this morning. D/W [facility] credit and collections representative regarding HHC and independent living. The credit and collections representative determine the patient would not be safe candidate for [facility] assisted living and has denied admission. Patient will likely not DC till Tuesday; this has been discussed with power of civil attorney (son) he was in agreement. - Constitutional Vitals: Temp Pulse Resp BP Pulse Ox 98.1 F 69 16 137/77 95 10/30/17 07:06 10/30/17 07:06 10/30/17 07:06 10/30/17 07:06 10/30/17 07:06 General appearance: Present: A&O X 1. Absent: answers questions appropriately - Head Head exam: Present: atraumatic, normocephalic - Eye Eye exam: Present: PERRL, conjuntiva pink, sclera anicteric Pupils: Present: PERRL - Neck Neck exam general surgery: Present: supple, trachea midline. Absent: lymphadenopathy - Respiratory Respiratory exam: Present: CTAB. Absent: accessory muscle use, rales, rhonchi, wheezes - Cardiovascular Cardiovascular exam: Present: RRR, +S1, +S2. Absent: diastolic murmur, gallop, rubs, systolic murmur - GI/Abdominal GI/Abdominal exam: Present: normal bowel sounds, soft, no peritoneal signs. Absent: distended, tenderness - Extremities Exam Extremities exam: Present: warm, radial pulses palpable and symmetrical. Absent : calf tenderness, cyanotic, pedal edema - Expanded Lower Extremities Exam Lower Leg exam: Present: normal inspection - Neurological Exam Neurological exam: Present: CN II-XII intact, oriented X3, no focal deficits. Absent: pronater drift, facial droop, speech deficit - Expanded Neurological Exam Neuro motor strength exam: LLE: 4, RLE: 4 - Psychiatric Psychiatric exam: Present: anxious, depressed - Skin Skin exam: Present: dry, intact Internal Medicine: Result - Labs CBC & Chem 7: 10/28/17 05:23 10/28/17 05:23 Consult Discharge Plan - Plan Referrals: Gabriela Puri DO [Partnered Physician] - Chris Bhatti MD [Primary Care Provider] -
[2017-10-30] MEDS: FLUoxetine HCl 10 MG CAPSULE PO SCH (11:56)
[2017-10-31 07:57] LABS: BUN/Creatinine Ratio 41 (6-26); Blood Urea Nitrogen 33 mg/dL (8-23); Calcium 9.4 mg/dL (8.6-10.3); Carbon Dioxide 26 mEq/L (23-29); Chloride 106 mEq/L (98-107); Glucose 85 mg/dL (70-105); Osmolality,Calculated 293 (280-300); Potassium 3.6 mEq/L (3.5-5.1); Sodium 138 mEq/L (136-145); eGFR For African Americans > 60 (> 60); eGFR For Non-African Americans > 60 (> 60)
[2017-10-31] MEDS: amLODIPine 5 MG TABLET PO SCH (08:34)
[2017-10-31 08:38] LABS: Basophils % 0.5 %; Eosinophils # 0.2 K/mcL (0.0-0.6); Eosinophils % 2.8 %; Hematocrit 43.8 % (35.3-44.9); Hemoglobin 14.2 g/dL (11.5-15.4); Immature Granulocytes % 0.3 % (0-4); Lymphocytes # 1.6 K/mcL (0.6-4.6); Lymphocytes % 19.7 %; Mean Corpuscular HGB Conc 32.4 g/dL (31.6-35.5); Mean Corpuscular Volume 89.4 fL (83.0-100.0); Mean Platelet Volume 10.9 fL (9.4-12.4); Monocytes # 0.7 K/mcL (0.0-1.3); Monocytes % 8.9 %; Neutrophils # 5.4 K/mcL (1.6-8.9); Platelet Count 205 K/mcL (140-400); Red Cell Distribution Width 14.6 % (11.5-14.5); Segmented Neutrophils % 67.8 %
[2017-10-31] MEDS: hydroCHLOROthiazide 25 MG TABLET PO SCH (08:59)
[2017-10-31] MEDS: FLUoxetine HCl 10 MG CAPSULE PO SCH (09:00)
[2017-10-31] MEDS: *HR* LORazepam 0.5 MG TABLET PO PRN (09:00)
--- NOTE | 2017-10-31 15:11 | Discharge Summary ---
- NOTES TO OUTPATIENT PROVIDER Notes to Outpatient Provider: Patient admitted for worsening dementia, falls secondary to increased weakness and instability. During admission workup revealed L1 subacute compression fracture. The evaluation revealed the patient was unsafe for discharge to extended living facility would better benefit from SNF placement at least temporarily for rehabilitation however may not have the potential to regain enough functionality to transfer back to assisted living. Date of Encounter: 10/31/17 Time of Encounter: 15:09 - Discharge Diagnosis (1) Fall Priority: Primary Status: Acute Assessment and Plan: History of multiple falls, most recently resulting in L-spine subacute compression fracture. Initial antigens were for patient to return to assisted living at [facility]. I was very clear that I did not think that this was the best for the patient due to safety issues and high risk for falls. Due to her dementia, spontaneity and multiple fall history this was thought to be an unsafe situation. However, the son was very adamant about wanting the patient to return to assisted living. I spoke with the real estate executive assistant director who reevaluated the patient last night and also deemed she is not a candidate for assisted living. Plan is for discharge to [facility] pending approval. History of multiple falls Frail elderly female with dementia Continue to have functional decline Most recent fall resulted in L-spine compression fracture Dr. Alejandra has seen the patient and signed off; recommendations for physical therapy and pain management; not a candidate for TLSO brace PT/OT recommendations for SNF Initially the POA (son) did not want the patient going to SNF. WOOD CAULKER, and myself have spoken with the POA and the patient was cleared to go back to [facility]. Continue PT/OT Continue falls precautions and supportive care, continue physical and occupational therapy while inpatient Qualifiers: Encounter type: initial encounter Qualified Code(s): W19.XXXA - Unspecified fall, initial encounter (2) Compression fracture Priority: Secondary Status: Acute Assessment and Plan: Lumbar spine XRay shows subacute L1 compression fracture Cannot tolerate TLSO brace at this time due to risk for formation of decubitus ulcers and skin breakdown Dr. Alejandra has seen the patient and signed off; recommendations for pain control and physical therapy Continue PT (3) Dementia Priority: Secondary Status: Chronic Assessment and Plan: Anxious this morning Also appears to be depressed History of anxiety and depression She has not been taking her doses of Lexapro, Seroquel and Prozac since admission resume Lexapro, Seroquel and Prozac and continue to monitor psychological status Qualifiers: Dementia type: Alzheimer's disease Alzheimer's disease onset: late-onset Dementia behavioral disturbance: without behavioral disturbance Qualified Code (s): G30.1 - Alzheimer's disease with late onset; F02.80 - Dementia in other diseases classified elsewhere without behavioral disturbance; F02.80 - Dementia in other diseases classified elsewhere without behavioral disturbance; F02.80 - Dementia in other diseases classified elsewhere without behavioral disturbance (4) Hypothyroidism Priority: Secondary Status: Chronic Assessment and Plan: Continue levothyroxine Qualifiers: Hypothyroidism type: unspecified Qualified Code(s): E03.9 - Hypothyroidism , unspecified (5) Essential hypertension Priority: Secondary Status: Chronic Assessment and Plan: Improving, stable today. Continue HTN medication regimen. (6) Anxiety Priority: Secondary Status: Acute Hospital course: Ms. Valdovinos is a 77 year old female with progressive dementia who was sent from an assisted living facility due to increased weakness and recurrent multiple falls. The patient was reported to be very spontaneous and sudden increasing frequency of falls over the last couple of weeks. Workup revealed a subacute L1 compression fracture. Neurological workup was unremarkable. She was seen and evaluated by orthopedics who recommended PT/OT therapy. She is not a candidate for TLSO bracing due to curvature of the spine and risk for ulcerations with TLSO brace. PT/OT evaluation indicates that the patient needed significant assistance for ambulation and daily activities due to significant weakness and gait instability. Patient is at increased risk for falls and would benefit from ECF placement. She is not a safe candidate for return to assisted living. She has had an uneventful hospital course. She remained medically stable throughout the stay and is safe for discharge to [facility] today Discharge discussed with: patient, family, nurse, social work, case management, residential solar consultant - Time Spent with Patient Total time spent providing and/or coordinating discharge services: Greater than 30 minutes - Discharge Medications Home Medications: Donepezil HCl [Aricept] 10 mg PO BID 10/27/17 [History] LORazepam [Ativan] 0.5 mg PO BID PRN 10/27/17 [History] Levothyroxine [Synthroid] 75 mcg PO 0630 10/27/17 [History] Loratadine [Claritin] 10 mg PO DAILY 10/27/17 [History] Losartan Potassium [Cozaar] 100 mg PO DAILY 10/27/17 [History] Meloxicam [Mobic] 7.5 mg PO BID 10/27/17 [History] Memantine HCl 10 mg PO BID 10/27/17 [History] Montelukast [Singulair] 10 mg PO HS 10/27/17 [History] Tramadol HCl [Ultram] 50 mg PO BID PRN 10/27/17 [History] Escitalopram [Lexapro] 10 mg PO DAILY 10/28/17 [History] Loperamide [Imodium] 2 mg PO Q6H PRN 10/28/17 [History] Quetiapine Fumarate [Seroquel] 25 mg PO HS 10/28/17 [History] Sertraline [Zoloft] 25 mg PO DAILY 10/28/17 [History] Allergies/Adverse Reactions: 3 Allergy/AdvReac Type Severity Reaction Status Date / Time Penicillins Allergy See Verified 10/28/17 11:12 Comments morphine AdvReac See Verified 10/28/17 11:12 Comments Date of admission: 10/28/17 18:43 Primary care physician: Chris Bhatti MD Discharging clinician: Jeremy Sparks Anticipated date of discharge: 10/31/17 - Constitutional Vitals: Temp Pulse Resp BP Pulse Ox 99.4 F 63 16 116/71 96 10/31/17 11:17 10/31/17 11:17 10/31/17 11:17 10/31/17 11:17 10/31/17 11:17 General appearance: Present: A&O X 1. Absent: answers questions appropriately Exam: Dementia - Head Head exam: Present: atraumatic, normocephalic - Eye Eye exam: Present: PERRL, conjuntiva pink, sclera anicteric Pupils: Present: PERRL - Neck Neck exam general surgery: Present: supple, trachea midline. Absent: lymphadenopathy - Respiratory Respiratory exam: Present: CTAB. Absent: accessory muscle use, rales, rhonchi, wheezes - Cardiovascular Cardiovascular exam: Present: RRR, +S1, +S2. Absent: diastolic murmur, gallop, rubs, systolic murmur - GI/Abdominal GI/Abdominal exam: Present: normal bowel sounds, soft, no peritoneal signs. Absent: distended, tenderness - Extremities Exam Extremities exam: Present: warm, radial pulses palpable and symmetrical. Absent : calf tenderness, cyanotic, pedal edema - Neurological Exam Neurological exam: Present: CN II-XII intact, oriented X3, no focal deficits. Absent: pronater drift, facial droop, speech deficit - Skin Skin exam: Present: dry, intact - Patient Status Disposition: Transfer SNF Condition: Fair Functional capacity at discharge: uses cane/walker (Ambulate with assistance only) Overall status at discharge: patient is not back to baseline - Discharge Instructions Instructions: Fall Prevention (DC) Follow Up With: Chris Bhatti MD [Primary Care Provider] - - Diet and Activity Activity: ambulate only with your walker (Ambulate with her walker and assistance only), as per physical therapy Diet: advance to your usual diet
--- NOTE | 2017-10-31 15:22 | Physician Discharge Referral ---
ExtendedCare Referral Info Transfer To: [place] Provider in Charge after Transfer: PCP, Other (Solitary provider) Institutional Level of Care: Skilled - Diagnosis (1) Fall Priority: Primary Status: Acute (2) Compression fracture Priority: Secondary Status: Acute (3) Dementia Priority: Secondary Status: Chronic (4) Hypothyroidism Priority: Secondary Status: Chronic (5) Essential hypertension Priority: Secondary Status: Chronic (6) Anxiety Priority: Secondary Status: Acute Prognosis: Poor Aware of Diagnosis: Patient, Family Aware of Prognosis: Patient, Family - Transfer Medications Home Medications: Donepezil HCl [Aricept] 10 mg PO BID 10/27/17 [History] LORazepam [Ativan] 0.5 mg PO BID PRN 10/27/17 [History] Levothyroxine [Synthroid] 75 mcg PO 0630 10/27/17 [History] Loratadine [Claritin] 10 mg PO DAILY 10/27/17 [History] Losartan Potassium [Cozaar] 100 mg PO DAILY 10/27/17 [History] Meloxicam [Mobic] 7.5 mg PO BID 10/27/17 [History] Memantine HCl 10 mg PO BID 10/27/17 [History] Montelukast [Singulair] 10 mg PO HS 10/27/17 [History] Tramadol HCl [Ultram] 50 mg PO BID PRN 10/27/17 [History] Escitalopram [Lexapro] 10 mg PO DAILY 10/28/17 [History] Loperamide [Imodium] 2 mg PO Q6H PRN 10/28/17 [History] Quetiapine Fumarate [Seroquel] 25 mg PO HS 10/28/17 [History] Sertraline [Zoloft] 25 mg PO DAILY 10/28/17 [History] Allergies/Adverse Reactions: 3 Allergy/AdvReac Type Severity Reaction Status Date / Time Penicillins Allergy See Verified 10/28/17 11:12 Comments morphine AdvReac See Verified 10/28/17 11:12 Comments - Respiratory Orders Smoking Cessation: Smoking cessation has been advised. For more information, call the [place] Tobacco Quit Line at 7-491-EXKG-NOW. - Mobility Orders Other (Patient needs physical therapy and occupational therapy. Ambulate with assistance only) - Rehabiliation Orders Rehab Orders: ROM Exercises, Evaluation for Physical Therapy, Evaluation for Occupational Therapy - Diet Orders Regular CERTIFICATION: I certify that the transfer of the above named patient to an Extended Care Facility is necessary for the continuing treatment of the diagnosis listed. The above information is true and accurate reflection of patient's current condition. Confidential - Redisclosure prohibited without a patient's written consent.
[2017-10-31 15:30] VITALS: BP 107/55
== END 2017-10-31 17:31 | DRG 544 ==
LOC: EMEROO 17:28 → 3BNU 17:28
PROVIDERS: ADMIT Internal Medicine; ATTEND Internal Medicine

== ENCOUNTER 2018-03-17 13:12 | Inpatient (IN) ==
--- NOTE | 2018-03-17 13:20 | Emergency Department Note ---
Disposition Clinical Impression: Altered mental status Disposition: Admitted As Inpatient Condition: Fair General Adult HPI - General Stated complaint: AMS Time Seen by Provider: 03/17/18 13:19 - Related Data Home Medications Medication Instructions Recorded Confirmed Donepezil HCl [Aricept] 10 mg PO BID 10/27/17 03/17/18 LORazepam [Ativan] 0.5 mg PO BID PRN 10/27/17 03/17/18 Levothyroxine [Synthroid] 75 mcg PO 0610/27/17 03/17/18 Loratadine [Claritin] 10 mg PO DAILY 10/27/17 03/17/18 Losartan Potassium [Cozaar] 100 mg PO DAILY 10/27/17 03/17/18 Meloxicam [Mobic] 7.5 mg PO BID 10/27/17 03/17/18 Memantine HCl 10 mg PO BID 10/27/17 03/17/18 Montelukast [Singulair] 10 mg PO HS 10/27/17 03/17/18 Tramadol HCl [Ultram] 50 mg PO BID PRN 10/27/17 10/27/17 Escitalopram [Lexapro] 10 mg PO DAILY 10/28/17 03/17/18 Quetiapine Fumarate [Seroquel] 25 mg PO HS 10/28/17 03/17/18 Sertraline [Zoloft] 25 mg PO DAILY 10/28/17 03/17/18 Allergies Allergy/AdvReac Type Severity Reaction Status Date / Time Penicillins Allergy See Verified 10/28/17 11:12 Comments morphine AdvReac See Verified 10/28/17 11:12 Comments Past Medical History - Past Medical History Medical history: Reports: cancer, dementia, GERD, hyperlipidemia, hypertension, thyroid disease Surgical history: Reports: no surgical history (cannot be obtained due to patient;s mental status), cancer surgery Psychiatric history: Reports: no psych history LOCAL AREA NETWORK ADMINISTRATOR history: Reports: no LOCAL AREA NETWORK ADMINISTRATOR history - Social History Smoking Status: Former smoker Smokeless Tobacco Status: No Alcohol use: Reports: none Drug use: Reports: none Course Vital Signs Temperature 99.3 F 03/17/18 13:16 Pulse Rate 72 03/17/18 13:16 Respiratory Rate 22 03/17/18 13:16 Blood Pressure 175/87 03/17/18 13:16 O2 Sat by Pulse Oximetry 96 03/17/18 13:16 Temperature 97.7 F 03/17/18 18:32 Pulse Rate 62 03/17/18 18:32 Respiratory Rate 15 03/17/18 18:32 Blood Pressure 156/80 03/17/18 18:32 O2 Sat by Pulse Oximetry 96 03/17/18 18:32 Oxygen Delivery Oxygen Delivery Room Air Medical Decision Making - Lab Data Result diagrams: 03/17/18 13:40 03/17/18 13:40 Lab Results 03/17/18 03/17/18 03/17/18 Range/Units 13:40 13:40 13:40 WBC 5.8 (4.3-11.1) K/mcL RBC 4.71 (3.82-4.97) M/mcL Hgb 13.9 (11.5-15.4) g/dL Hct 44.7 (35.3-44.9) % MCV 94.9 (83.0-100.0) fL MCH 29.5 (28.0-33.3) pg MCHC 31.1 L (31.6-35.5) g/dL RDW 14.3 (11.5-14.5) % Plt Count 225 (140-400) K/mcL MPV 10.3 (9.4-12.4) fL Immature Gran % 0.3 (0-4) % Seg Neutrophils % 62.7 % Lymphocytes % 23.6 % Monocytes % 8.4 % Eosinophils % 4.5 % Basophils % 0.5 % Neutrophils # 3.7 (1.6-8.9) K/mcL Lymphocytes # 1.4 (0.6-4.6) K/mcL Monocytes # 0.5 (0.0-1.3) K/mcL Eosinophils # 0.3 (0.0-0.6) K/mcL Basophils # 0.0 (0.0-0.2) K/mcL PT (9.4-12.1) Seconds INR APTT (26.0-36.0) Seconds Sodium 141 (136-145) mEq/L Potassium 4.5 (3.5-5.1) mEq/L Chloride 107 (98-107) mEq/L Carbon Dioxide 30 H (23-29) mEq/L BUN 28 H (8-23) mg/dL Creatinine 0.90 (0.60-1.20) mg/dL Est GFR ( Amer) > 60 (> 60) Est GFR (Non-Af Amer) > 60 (> 60) BUN/Creatinine Ratio 31 H (6-26) Glucose 95 (70-105) mg/dL Calculated Osmolality 297 (280-300) Calcium 9.6 (8.6-10.3) mg/dL Total Bilirubin 0.3 (0.3-1.0) mg/dL Direct Bilirubin 0.1 (0.0-0.2) mg/dL Indirect Bilirubin 0.2 (0.0-1.2) mg/dL AST 17 (13-39) Units/L ALT 15 (7-52) Units/L Alkaline Phosphatase 98 (34-104) Units/L Troponin I < 0.03 (< 0.04) ng/mL Serum Total Protein 6.9 (6.4-8.9) g/dL Albumin 3.8 (3.5-5.7) g/dL Globulin 3.1 (2.4-3.5) g/dL Albumin/Globulin Ratio 1.2 (1.1-2.2) TSH 2.354 (0.340-5.600) mcIU/mL Urine Color (Yellow) Urine Clarity (Clear) Urine pH (5.0-8.0) pH Units Ur Specific [place] (1.010-1.025) Urine Protein (Neg-Trace) mg/dL Urine Glucose (UA) (Normal) mg/dL Urine Ketones (Negative) mg/dL Urine Blood (Negative) Urine Nitrite (Negative) Urine Bilirubin (Negative) Urine Urobilinogen (Normal) mg/dL Ur Leukocyte Esterase (Negative) Urine Microscopic RBC (0-3) per hpf Urine Microscopic WBC (0-3) per hpf Ur Squamous Epith Cells (None-Few) per lpf Ur Renal Epithelial Cell (None-Few) per hpf Urine Bacteria (None-Few) per hpf Hyaline Casts (None-Few) per lpf Ur Culture Indicated? (NO) Specimen Rejected Volume 03/17/18 03/17/18 Range/Units 14:09 14:39 WBC (4.3-11.1) K/mcL RBC (3.82-4.97) M/mcL Hgb (11.5-15.4) g/dL Hct (35.3-44.9) % MCV (83.0-100.0) fL MCH (28.0-33.3) pg MCHC (31.6-35.5) g/dL RDW (11.5-14.5) % Plt Count (140-400) K/mcL MPV (9.4-12.4) fL Immature Gran % (0-4) % Seg Neutrophils % % Lymphocytes % % Monocytes % % Eosinophils % % Basophils % % Neutrophils # (1.6-8.9) K/mcL Lymphocytes # (0.6-4.6) K/mcL Monocytes # (0.0-1.3) K/mcL Eosinophils # (0.0-0.6) K/mcL Basophils # (0.0-0.2) K/mcL PT 10.4 (9.4-12.1) Seconds INR 0.9 APTT 31.9 (26.0-36.0) Seconds Sodium (136-145) mEq/L Potassium (3.5-5.1) mEq/L Chloride (98-107) mEq/L Carbon Dioxide (23-29) mEq/L BUN (8-23) mg/dL Creatinine (0.60-1.20) mg/dL Est GFR ( Amer) (> 60) Est GFR (Non-Af Amer) (> 60) BUN/Creatinine Ratio (6-26) Glucose (70-105) mg/dL Calculated Osmolality (280-300) Calcium (8.6-10.3) mg/dL Total Bilirubin (0.3-1.0) mg/dL Direct Bilirubin (0.0-0.2) mg/dL Indirect Bilirubin (0.0-1.2) mg/dL AST (13-39) Units/L ALT (7-52) Units/L Alkaline Phosphatase (34-104) Units/L Troponin I (< 0.04) ng/mL Serum Total Protein (6.4-8.9) g/dL Albumin (3.5-5.7) g/dL Globulin (2.4-3.5) g/dL Albumin/Globulin Ratio (1.1-2.2) TSH (0.340-5.600) mcIU/mL Urine Color Yellow (Yellow) Urine Clarity Clear (Clear) Urine pH 7.5 (5.0-8.0) pH Units Ur Specific [place] 1.014 (1.010-1.025) Urine Protein Negative (Neg-Trace) mg/dL Urine Glucose (UA) Normal (Normal) mg/dL Urine Ketones Negative (Negative) mg/dL Urine Blood Negative (Negative) Urine Nitrite Negative (Negative) Urine Bilirubin Negative (Negative) Urine Urobilinogen Normal (Normal) mg/dL Ur Leukocyte Esterase Trace H (Negative) Urine Microscopic RBC 5-15 H (0-3) per hpf Urine Microscopic WBC 5-15 H (0-3) per hpf Ur Squamous Epith Cells Many H (None-Few) per lpf Ur Renal Epithelial Cell Moderate H (None-Few) per hpf Urine Bacteria Moderate H (None-Few) per hpf Hyaline Casts None Seen (None-Few) per lpf Ur Culture Indicated? NO. A (NO) Specimen Rejected Attestation Statement - Attestation Attestation: I examined this patient and my medical decision-making was reviewed with the Resident Physician. I agree with the documented findings, disposition and treatment plan as described except to the extent set forth below. [id number] time provided Patient arrives from an assisted living facility with a change in mentation over the past 1 week. The patient appears in no acute distress upon arrival. I did have a discussion with the transporting paramedics. I reviewed her baseline medication.
--- NOTE | 2018-03-17 13:29 | Emergency Department Note ---
Disposition Clinical Impression: Altered mental status Qualifiers: Altered mental status type: unspecified Qualified Code(s): R41.82 - Altered mental status, unspecified Disposition: Admitted As Inpatient Condition: Fair Time of Disposition: 16:08 Altered Mental Status HPI - General Chief Complaint: ED Altered Mental Status Stated Complaint: AMS Time Seen by Provider: 03/17/18 13:19 Source: patient, EMS Mode of arrival: ambulatory Limitations: no limitations Nursing Notes Reviewed: Yes Vital Signs Reviewed: Yes - History of Present Illness HPI Narrative: Patient is a 69-year-old female presenting with AMS from outside facility. Patient was brought in via EMS from assisted living facility. Per EMS, they were called to her facility as patient has been had increased confusion and altered mental status over the past week progressively getting worse. There is no reported fall. It is noted that on arrival patient was pleasant, stated that she had a possible urinary tract infection recently. POC glucose was 113, blood pressure and vitals were all within normal limits. Patient was picked up alert and oriented 2. She was alert to person and place at nursing facility. Upon evaluation of the patient, she reports that she has felt more confused recently. However with further discussion and evaluation, patient is unable to provide much history due to altered mental status. - Related Data Home Medications Medication Instructions Recorded Confirmed Donepezil HCl [Aricept] 10 mg PO BID 10/27/17 03/17/18 LORazepam [Ativan] 0.5 mg PO BID PRN 10/27/17 03/17/18 Levothyroxine [Synthroid] 75 mcg PO 0630 10/27/17 03/17/18 Loratadine [Claritin] 10 mg PO DAILY 10/27/17 03/17/18 Losartan Potassium [Cozaar] 100 mg PO DAILY 10/27/17 03/17/18 Meloxicam [Mobic] 7.5 mg PO BID 10/27/17 03/17/18 Memantine HCl 10 mg PO BID 10/27/17 03/17/18 Montelukast [Singulair] 10 mg PO HS 10/27/17 03/17/18 Tramadol HCl [Ultram] 50 mg PO BID PRN 10/27/17 10/27/17 Escitalopram [Lexapro] 10 mg PO DAILY 10/28/17 03/17/18 Quetiapine Fumarate [Seroquel] 25 mg PO HS 10/28/17 03/17/18 Sertraline [Zoloft] 25 mg PO DAILY 10/28/17 03/17/18 Allergies Allergy/AdvReac Type Severity Reaction Status Date / Time Penicillins Allergy See Verified 10/28/17 11:12 Comments morphine AdvReac See Verified 10/28/17 11:12 Comments All systems ED: reviewed and negative except as stated. Review of Systems: As Per HPI Constitutional: Denies: fever ENT ED: Denies: congestion Cardiovascular: Denies: chest pain, syncope Respiratory: Denies: cough, dyspnea Gastrointestinal: Denies: abdominal pain, vomiting Genitourinary: Denies: dysuria Musculoskeletal: Denies: back pain Integumentary: Denies: rash Neurological: Reports: confusion. Denies: headache, weakness, numbness, paresthesias Past Medical History - Past Medical History Medical history: Reports: cancer, dementia, GERD, hyperlipidemia, hypertension, thyroid disease Surgical history: Reports: no surgical history (cannot be obtained due to patient;s mental status), cancer surgery Psychiatric history: Reports: no psych history [employer] history: Reports: no [employer] history - Social History Smoking Status: Former smoker Smokeless Tobacco Status: No Alcohol use: Reports: none Drug use: Reports: none Physical Exam - General Limitations: no limitations General appearance: in no apparent distress, other (Patient is pleasant on exam , she is only alert to her name, not alert to place or time. Multiple times began talking with individuals from her past whom she thought were in the room.) - Head Head exam: atraumatic, normocephalic, normal inspection - Eye Eye exam: Present: normal appearance, PERRL, EOMI - ENT ENT exam: normal exam, normal oropharynx, mucous membranes moist - Neck Neck exam: Present: normal inspection, full ROM, trachea midline - Chest Chest inspection: Present: normal inspection, symmetric chest wall rise - Respiratory Respiratory exam: Present: normal lung sounds bilaterally - Cardiovascular Cardiovascular exam: Present: regular rate, normal rhythm, normal heart sounds - Abdominal Exam Abdominal exam: Present: soft, tenderness (Minimal suprapubic tenderness just over the pubic symphysis). Absent: distention, guarding, rebound, rigidity - Extremities Exam Extremities exam: Present: normal inspection, full ROM, normal capillary refill. Absent: tenderness, pedal edema - Expanded Lower Extremity Exam Neurovascular/Tendon exam: Absent: motor deficit, sensory deficit, tendon deficit - Neurological Exam Neurological exam: Present: alert, CN II-XII intact - Expanded Neurological Exam Patient oriented to: Present: person. Absent: place, time Speech: Present: fluid speech Cranial nerves: EOM function (II, III, IV, ): Normal, facial sensation (V): Normal, facial palsy (VII): Normal, gag reflex (IX): Normal, spinal accessory function (XI): Normal, tongue deviation (XII): Normal Cerebellar function: Romberg normal Motor strength - LUE: 4/5 Motor strength - RUE: 4/5 Motor strength - LLE: 4/5 Motor strength - RLE: 4/5 Sensory exam upper extremity: light touch: Normal Sensory exam lower extremity: light touch: Normal Coma Scale Eye Opening: Spontaneous Coma Scale Motor Response: Obeys Commands Coma Scale Verbal Response: Confused Coma Scale Total: 14 - Psychiatric Psychiatric exam: Present: normal affect, normal mood - Skin Skin exam: Present: warm, dry, intact Course Course Narrative: We will order a MS workup including CBC, BMP, hepatic panel, lipase, troponin, EKG and chest x-ray, urinalysis with straight catheter and CT of the head. Vital Signs Temperature 99.3 F 03/17/18 13:16 Pulse Rate 72 03/17/18 13:16 Respiratory Rate 22 03/17/18 13:16 Blood Pressure 175/87 03/17/18 13:16 O2 Sat by Pulse Oximetry 96 03/17/18 13:16 Temperature 99.3 F 03/17/18 13:16 Pulse Rate 63 03/17/18 16:16 Respiratory Rate 20 03/17/18 16:16 Blood Pressure 197/82 03/17/18 16:16 O2 Sat by Pulse Oximetry 99 03/17/18 15:10 Oxygen Delivery Oxygen Delivery Room Air Altered Mental Status - MDM Narrative Medical decision making narrative: Patient is a 69-year-old female presented with AMS. She is being brought in via EMS from an outside facility. Patient was seen and examined on arrival, vital signs within normal limits. Patient appears alert and oriented to person not to place or time. She is pleasantly answering questions on exam. No further focal neurological or sensation changes. Possible remote history of urinary tract infection recently, however unable to substantiate this by medical records. Physical etiology infectious first metabolic. We will also perform a CT of the head. CBC is unremarkable, BMP within normal limits. Urinalysis is negative for acute infection, however is contaminated. CT of the head is negative for acute intracranial process. Chronic changes are still noted with ischemic changes. The chest x-ray shows no acute intracardiac or pulmonary process, does continue to show chronic changes. This point in time, we will discuss patient with hospitalist for admission for further evaluation and recommendation. At this point in time, still misleading infectious or metabolic etiology, workup does not reveal acute source. Patient's vital signs are stable while in the emergency department. Spoke with hospitalist, Dr. Flores at 1605 they will be admitting patient for further evaluation and workup. - Differential Diagnosis Likely: altered mental status, dementia, hypoglycemia (Polypharmacy, cva), hyponatremia - Medical Records Medical records reviewed: Yes I reviewed the patient's medical records. - Lab Data Lab results reviewed: Yes I reviewed the patient's lab results. Result diagrams: 03/17/18 13:40 03/17/18 13:40 Lab Results 03/17/18 03/17/18 03/17/18 Range/Units 13:40 13:40 13:40 WBC 5.8 (4.3-11.1) K/mcL RBC 4.71 (3.82-4.97) M/mcL Hgb 13.9 (11.5-15.4) g/dL Hct 44.7 (35.3-44.9) % MCV 94.9 (83.0-100.0) fL MCH 29.5 (28.0-33.3) pg MCHC 31.1 L (31.6-35.5) g/dL RDW 14.3 (11.5-14.5) % Plt Count 225 (140-400) K/mcL MPV 10.3 (9.4-12.4) fL Immature Gran % 0.3 (0-4) % Seg Neutrophils % 62.7 % Lymphocytes % 23.6 % Monocytes % 8.4 % Eosinophils % 4.5 % Basophils % 0.5 % Neutrophils # 3.7 (1.6-8.9) K/mcL Lymphocytes # 1.4 (0.6-4.6) K/mcL Monocytes # 0.5 (0.0-1.3) K/mcL Eosinophils # 0.3 (0.0-0.6) K/mcL Basophils # 0.0 (0.0-0.2) K/mcL PT (9.4-12.1) Seconds INR APTT (26.0-36.0) Seconds Sodium 141 (136-145) mEq/L Potassium 4.5 (3.5-5.1) mEq/L Chloride 107 (98-107) mEq/L Carbon Dioxide 30 H (23-29) mEq/L BUN 28 H (8-23) mg/dL Creatinine 0.90 (0.60-1.20) mg/dL Est GFR ( Amer) > 60 (> 60) Est GFR (Non-Af Amer) > 60 (> 60) BUN/Creatinine Ratio 31 H (6-26) Glucose 95 (70-105) mg/dL Calculated Osmolality 297 (280-300) Calcium 9.6 (8.6-10.3) mg/dL Total Bilirubin 0.3 (0.3-1.0) mg/dL Direct Bilirubin 0.1 (0.0-0.2) mg/dL Indirect Bilirubin 0.2 (0.0-1.2) mg/dL AST 17 (13-39) Units/L ALT 15 (7-52) Units/L Alkaline Phosphatase 98 (34-104) Units/L Troponin I < 0.03 (< 0.04) ng/mL Serum Total Protein 6.9 (6.4-8.9) g/dL Albumin 3.8 (3.5-5.7) g/dL Globulin 3.1 (2.4-3.5) g/dL Albumin/Globulin Ratio 1.2 (1.1-2.2) TSH 2.354 (0.340-5.600) mcIU/mL Urine Color (Yellow) Urine Clarity (Clear) Urine pH (5.0-8.0) pH Units Ur Specific [place] (1.010-1.025) Urine Protein (Neg-Trace) mg/dL Urine Glucose (UA) (Normal) mg/dL Urine Ketones (Negative) mg/dL Urine Blood (Negative) Urine Nitrite (Negative) Urine Bilirubin (Negative) Urine Urobilinogen (Normal) mg/dL Ur Leukocyte Esterase (Negative) Urine Microscopic RBC (0-3) per hpf Urine Microscopic WBC (0-3) per hpf Ur Squamous Epith Cells (None-Few) per lpf Ur Renal Epithelial Cell (None-Few) per hpf Urine Bacteria (None-Few) per hpf Hyaline Casts (None-Few) per lpf Ur Culture Indicated? (NO) Specimen Rejected Volume 03/17/18 03/17/18 Range/Units 14:09 14:39 WBC (4.3-11.1) K/mcL RBC (3.82-4.97) M/mcL Hgb (11.5-15.4) g/dL Hct (35.3-44.9) % MCV (83.0-100.0) fL MCH (28.0-33.3) pg MCHC (31.6-35.5) g/dL RDW (11.5-14.5) % Plt Count (140-400) K/mcL MPV (9.4-12.4) fL Immature Gran % (0-4) % Seg Neutrophils % % Lymphocytes % % Monocytes % % Eosinophils % % Basophils % % Neutrophils # (1.6-8.9) K/mcL Lymphocytes # (0.6-4.6) K/mcL Monocytes # (0.0-1.3) K/mcL Eosinophils # (0.0-0.6) K/mcL Basophils # (0.0-0.2) K/mcL PT 10.4 (9.4-12.1) Seconds INR 0.9 APTT 31.9 (26.0-36.0) Seconds Sodium (136-145) mEq/L Potassium (3.5-5.1) mEq/L Chloride (98-107) mEq/L Carbon Dioxide (23-29) mEq/L BUN (8-23) mg/dL Creatinine (0.60-1.20) mg/dL Est GFR ( Amer) (> 60) Est GFR (Non-Af Amer) (> 60) BUN/Creatinine Ratio (6-26) Glucose (70-105) mg/dL Calculated Osmolality (280-300) Calcium (8.6-10.3) mg/dL Total Bilirubin (0.3-1.0) mg/dL Direct Bilirubin (0.0-0.2) mg/dL Indirect Bilirubin (0.0-1.2) mg/dL AST (13-39) Units/L ALT (7-52) Units/L Alkaline Phosphatase (34-104) Units/L Troponin I (< 0.04) ng/mL Serum Total Protein (6.4-8.9) g/dL Albumin (3.5-5.7) g/dL Globulin (2.4-3.5) g/dL Albumin/Globulin Ratio (1.1-2.2) TSH (0.340-5.600) mcIU/mL Urine Color Yellow (Yellow) Urine Clarity Clear (Clear) Urine pH 7.5 (5.0-8.0) pH Units Ur Specific [place] 1.014 (1.010-1.025) Urine Protein Negative (Neg-Trace) mg/dL Urine Glucose (UA) Normal (Normal) mg/dL Urine Ketones Negative (Negative) mg/dL Urine Blood Negative (Negative) Urine Nitrite Negative (Negative) Urine Bilirubin Negative (Negative) Urine Urobilinogen Normal (Normal) mg/dL Ur Leukocyte Esterase Trace H (Negative) Urine Microscopic RBC 5-15 H (0-3) per hpf Urine Microscopic WBC 5-15 H (0-3) per hpf Ur Squamous Epith Cells Many H (None-Few) per lpf Ur Renal Epithelial Cell Moderate H (None-Few) per hpf Urine Bacteria Moderate H (None-Few) per hpf Hyaline Casts None Seen (None-Few) per lpf Ur Culture Indicated? NO. A (NO) Specimen Rejected - Radiology Data Radiology results reviewed: Yes I reviewed the patient's radiology results. Chest X-Ray 03/17/18 13:23 IMPRESSION: Stable examination without acute process. Large hiatal/paraesophageal hernia containing portions of the colon and the majority of the stomach as seen on prior exams. D/ / 03/17/2018 14:19:29 Merrick Santacruz MD / Katerina Valentin Interpreting Provider: Merrick Santacruz MD Head CT 03/17/18 13:24 IMPRESSION: Stable CT brain with no acute intracranial abnormality and chronic ischemic/senescent changes as described. D/ / Malcolm Delaney MD / Malcolm Delaney MD Interpreting Provider: Malcolm Delaney MD - EKG Data EKG attestation: Yes I reviewed and interpreted this EKG. EKG results narrative: EKG performed at 1330 with ventricular rate of 69, normal axis, regular rhythm, no evidence of hypertrophy, right bundle branch block noted, appears to be similar from last EKG intervals are all within normal limits. Overall normal sinus rhythm with right bundle range block. TPA Checklist - LKW: 3-4.5 hrs Add. Warnings/Precautions Patient/family understanding: The patient/family members have been counseled and understood the risk, benefit , and alternatives of treatment. S.B.Jannie. - Brian.Terri Situation: Demographics, MOA Background: Presenting Complaint, Relevant PMH, Meds, & Allergies Assessment: Vital Signs, Course and respsone to treatment, Exam Concerns, Patient/Family Expectation, Pertinant Lab Results, Outstanding Labs Recommendation: Barrier(s) to disposition, Recommendation based on pending studies, treatments, or consults S.B.A.RZarina Report Given to: Hospitalist, Dr. Mark Bashir Repor Time: 16:07 (accepted)
[2018-03-17 13:55] LABS: Basophils % 0.5 %; Eosinophils # 0.3 K/mcL (0.0-0.6); Eosinophils % 4.5 %; Hematocrit 44.7 % (35.3-44.9); Hemoglobin 13.9 g/dL (11.5-15.4); Immature Granulocytes % 0.3 % (0-4); Lymphocytes # 1.4 K/mcL (0.6-4.6); Lymphocytes % 23.6 %; Mean Corpuscular HGB Conc 31.1 g/dL (31.6-35.5); Mean Corpuscular Hemoglobin 29.5 pg (28.0-33.3); Mean Corpuscular Volume 94.9 fL (83.0-100.0); Mean Platelet Volume 10.3 fL (9.4-12.4); Monocytes # 0.5 K/mcL (0.0-1.3); Monocytes % 8.4 %; Neutrophils # 3.7 K/mcL (1.6-8.9); Platelet Count 225 K/mcL (140-400); Red Blood Count 4.71 M/mcL (3.82-4.97); Red Cell Distribution Width 14.3 % (11.5-14.5); Segmented Neutrophils % 62.7 %
[2018-03-17 14:17] LABS: Troponin I < 0.03 ng/mL (< 0.04)
[2018-03-17 14:19] LABS: Alanine Aminotransferase 15 Units/L (7-52); Albumin 3.8 g/dL (3.5-5.7); Albumin/Globulin Ratio 1.2 (1.1-2.2); Alkaline Phosphatase 98 Units/L (34-104); Aspartate Amino Transferase 17 Units/L (13-39); BUN/Creatinine Ratio 31 (6-26); Bilirubin,Direct 0.1 mg/dL (0.0-0.2); Bilirubin,Indirect 0.2 mg/dL (0.0-1.2); Bilirubin,Total 0.3 mg/dL (0.3-1.0); Blood Urea Nitrogen 28 mg/dL (8-23); Calcium 9.6 mg/dL (8.6-10.3); Carbon Dioxide 30 mEq/L (23-29); Chloride 107 mEq/L (98-107); Globulin 3.1 g/dL (2.4-3.5); Glucose 95 mg/dL (70-105); Osmolality,Calculated 297 (280-300); Potassium 4.5 mEq/L (3.5-5.1); Sodium 141 mEq/L (136-145); Total Protein 6.9 g/dL (6.4-8.9); eGFR For Non-African Americans > 60 (> 60)
[2018-03-17 14:27] LABS: INR 0.9; Prothrombin Time 10.4 Seconds (9.4-12.1)
[2018-03-17 14:30] LABS: Activated Partial Thrombo Time 31.9 Seconds (26.0-36.0)
[2018-03-17 14:30] LABS: Thyroid Stimulating Hormone 2.354 mcIU/mL (0.340-5.600)
[2018-03-17 14:53] LABS: Bilirubin,Urine Negative (Negative); Blood,Urine Negative (Negative); Clarity,Urine Clear (Clear); Color,Urine Yellow (Yellow); Glucose,Urine (UA) Normal (Normal); Hyaline Casts,Urine None Seen per lpf (None-Few); Ketones,Urine Negative (Negative); Leukocyte Esterase,Urine Trace (Negative); Nitrite,Urine Negative (Negative); PH,Urine 7.5 pH Units (5.0-8.0); Protein,Urine Negative (Neg-Trace); Specific Gravity,Urine 1.014 (1.010-1.025); Squamous Epithelial Cell,Urine Many per lpf (None-Few); Urobilinogen,Urine Normal (Normal)
[2018-03-17 15:10] LABS: Bacteria,Urine Moderate per hpf (None-Few); Renal Epithelial Cells,Urine Moderate per hpf (None-Few)
[2018-03-17] MEDS ORDERED: Naloxone 0.4 MG/ML INJ IVP PRN ×2 (16:28→16:52)
--- NOTE | 2018-03-17 17:26 | Internal Med History&Physical ---
Date of Encounter: 03/17/18 Time of Encounter: 17:22 Internal Medicine - H&P: HPI Chief complaint: altered mental status Admitted From: Home Plans for Post Hospital Care: Home History of present illness: Ms. Valdovinos is a 77 year old female with a PMH of cancer, advanced dementia, GERD , hyperlipidemia, hypertension, thyroid disease. She presents from an assisted living facility with concerns for AMS. ROS unable to be performed d/t altered mental status. History obtained from chart review and physician report. He is reporting the patient without a change in mentation over the past week it appears to be acutely distressed. Etiology is unclear. The possibility states that the patient has not had any fever, chills, nausea, vomiting, diarrhea. Upon my assessment the patient appears to be alert to self and disoriented to place and situation. She was able to tell me that she has been having dysuria as well as back pain. She denies any headache, weakness, numbness, chest pain, or paresthesias. CBC and BMP were unremarkable. CT of head negative for acute intracranial process. Chest x-ray shows no acute pulmonary process. Urinalysis obtained and contaminated with trace leukocyte esterase. Alterations in mental status remains unclear however, she was also noted to have hypertensive urgency while in the ED with SBP in the 200s however these blood pressures are not documented. Consider hypertensive encephalopathy because of mental status change. Additional differentials include urinary tract infection or polypharmacy as the patient is on multiple psychiatric medications. She is being admitted for further workup and evaluation. Past Med Surg Social Fam HX - Past Medical History Medical history: cancer, dementia, GERD, hyperlipidemia, hypertension, thyroid disease Psychiatric history: no psych history - Past Surgical History Surgical History: no surgical history (cannot be obtained due to patient;s mental status), cancer surgery Additional surgical history: colonoscopy - Social History Smoking Status: Former smoker Smokeless Tobacco Status: No Alcohol use: none Drug use: none - Additional Family History Additional family history: Cannot be obtained due to patient's mental status Internal Medicine - H&P: Meds Donepezil HCl [Aricept] 10 mg PO BID 10/27/17 [History] LORazepam [Ativan] 0.5 mg PO BID PRN 10/27/17 [History] Levothyroxine [Synthroid] 75 mcg PO 0630 10/27/17 [History] Loratadine [Claritin] 10 mg PO DAILY 10/27/17 [History] Losartan Potassium [Cozaar] 100 mg PO DAILY 10/27/17 [History] Meloxicam [Mobic] 7.5 mg PO BID 10/27/17 [History] Memantine HCl 10 mg PO BID 10/27/17 [History] Montelukast [Singulair] 10 mg PO HS 10/27/17 [History] Tramadol HCl [Ultram] 50 mg PO BID PRN 10/27/17 [History] Escitalopram [Lexapro] 10 mg PO DAILY 10/28/17 [History] Quetiapine Fumarate [Seroquel] 25 mg PO HS 10/28/17 [History] Sertraline [Zoloft] 25 mg PO DAILY 10/28/17 [History] 3 Allergy/AdvReac Type Severity Reaction Status Date / Time Penicillins Allergy See Verified 10/28/17 11:12 Comments morphine AdvReac See Verified 10/28/17 11:12 Comments ROS unobtainable: due to mental status All Systems PM: A 10-system review of systems was performed and is negative for pertinent findings except as documented above in the HPI. - Constitutional Vitals: Temp Pulse Resp BP Pulse Ox 99.3 F 63 20 197/82 99 03/17/18 13:16 03/17/18 16:16 03/17/18 16:16 03/17/18 16:16 03/17/18 15:10 General appearance: Present: A&O X 1, mild distress Exam: . - Head Head exam: Present: atraumatic, normocephalic - Eye Eye exam: Present: PERRL, conjuntiva pink, sclera anicteric Pupils: Present: PERRL - Neck Neck exam general surgery: Present: supple, trachea midline. Absent: lymphadenopathy - Respiratory Respiratory exam: Present: CTAB. Absent: accessory muscle use, rales, rhonchi, wheezes - Cardiovascular Cardiovascular exam: Present: RRR, +S1, +S2. Absent: diastolic murmur, gallop, rubs, systolic murmur - GI/Abdominal GI/Abdominal exam: Present: normal bowel sounds, soft, no peritoneal signs. Absent: distended, tenderness - Extremities Exam Extremities exam: Present: warm, radial pulses palpable and symmetrical. Absent : calf tenderness, cyanotic, pedal edema - Neurological Exam Neurological exam: Present: alert. Absent: oriented X3, facial droop, speech deficit - Skin Skin exam: Present: dry, excoriation (Bilateral anterior legs with dry skin and eczema) Internal Med - H&P Results - Labs CBC & Chem 7: 03/17/18 13:40 03/17/18 13:40 - EKG Data -: EKG Interpreted by Myself EKG shows normal: sinus rhythm Rate: normal (Right bundle-branch block) - Impressions Impressions Chest X-Ray 03/17/18 13:23 IMPRESSION: Stable examination without acute process. Large hiatal/paraesophageal hernia containing portions of the colon and the majority of the stomach as seen on prior exams. D/ / 03/17/2018 14:19:29 Merrick Santacruz MD / Katerina Valentin Interpreting Provider: Merrick Santacruz MD Head CT 03/17/18 13:24 IMPRESSION: Stable CT brain with no acute intracranial abnormality and chronic ischemic/senescent changes as described. D/ / Malcolm Delaney MD / Malcolm Delaney MD Interpreting Provider: Malcolm Delaney MD - Assessment and plan (1) Hypertensive encephalopathy Current Visit: Yes Status: Acute Assessment and plan: History of hypertension. Presents with hypertensive urgency and altered mental status, patient lives in a nursing facility and it was reported the patient has had an increase in confusion and alterations in mental status. At baseline the patient suffers from advanced dementia, unclear if she is truly altered; awaiting family's arrival for further discussion consider hypertensive encephalopathy as cause of mental status alterations. Resume home blood pressure medications, and start PRN hydralazine for SBP greater than 160, if BP does not improve patient will be placed on IV antihypertensives (2) Hypertensive urgency Current Visit: Yes Status: Acute Assessment and plan: As above (3) Depression with anxiety Current Visit: Yes Status: Acute Assessment and plan: Resuming anxiolytics (4) Altered mental status Current Visit: Yes Status: Acute Assessment and plan: Presenting with alterations in mental status per SNF Unclear patient's baseline mental status as she does have a history of advanced dementia No metabolic arrangements found on lab work, CBC unremarkable UA with trace leukocyte esterase but appears to be contaminated; will recollect Additional considerations for altered metal status with hypertensive encephalopathy as patient presented with hypertensive urgency Additionally, the patient may be suffering from polypharmacy is as she is on multiple psychiatric medications We will treat blood pressure as stated above Resume dementia medications Down titrate psych medications as able; monitor closely Qualifiers: Altered mental status type: unspecified Qualified Code(s): R41.82 - Altered mental status, unspecified (5) Dementia Current Visit: No Status: Chronic Assessment and plan: Continue dementia medications Qualifiers: Dementia type: Alzheimer's disease Alzheimer's disease onset: late-onset Dementia behavioral disturbance: without behavioral disturbance Qualified Code (s): G30.1 - Alzheimer's disease with late onset; F02.80 - Dementia in other diseases classified elsewhere without behavioral disturbance; F02.80 - Dementia in other diseases classified elsewhere without behavioral disturbance; F02.80 - Dementia in other diseases classified elsewhere without behavioral disturbance (6) Essential hypertension Current Visit: No Status: Chronic Assessment and plan: As above (7) Hypothyroidism Current Visit: No Status: Chronic Assessment and plan: Continue Synthroid Qualifiers: Hypothyroidism type: unspecified Qualified Code(s): E03.9 - Hypothyroidism , unspecified (8) DVT prophylaxis Current Visit: Yes Status: Acute Assessment and plan: Lovenox - Time Spent With Patient Total time spent is greater than 50% in coordination of care (as documented) at patient's floor/unit and/or counseling patient: less than 15 minutes
[2018-03-17 18:56] LABS: Bilirubin,Urine Negative (Negative); Blood,Urine Trace (Negative); Clarity,Urine Clear (Clear); Color,Urine Yellow (Yellow); Glucose,Urine (UA) Normal (Normal); Ketones,Urine Negative (Negative); Leukocyte Esterase,Urine Negative (Negative); Nitrite,Urine Negative (Negative); PH,Urine 7.5 pH Units (5.0-8.0); Protein,Urine Trace mg/dL (Neg-Trace); Specific Gravity,Urine 1.006 (1.010-1.025); Urobilinogen,Urine Normal (Normal)
[2018-03-17 18:57] LABS: Bacteria,Urine None Seen per hpf (None-Few); Hyaline Casts,Urine None Seen per lpf (None-Few); Squamous Epithelial Cell,Urine Many per lpf (None-Few); WBC,Urine 0-3 per hpf (0-3)
[2018-03-17] MEDS: DiphenhydraMINE CREAM 28.4 GM TUBE TP PRN (21:39)
[2018-03-18] MEDS: *HR* Enoxaparin 40 MG/0.4 ML SYRINGE SQ SCH (06:33)
[2018-03-18 06:38] LABS: Basophils % 0.5 %; Eosinophils # 0.3 K/mcL (0.0-0.6); Eosinophils % 5.1 %; Hematocrit 41.2 % (35.3-44.9); Hemoglobin 13.1 g/dL (11.5-15.4); Immature Granulocytes % 0.2 % (0-4); Lymphocytes # 1.6 K/mcL (0.6-4.6); Lymphocytes % 28.1 %; Mean Corpuscular HGB Conc 31.8 g/dL (31.6-35.5); Mean Corpuscular Hemoglobin 29.5 pg (28.0-33.3); Mean Corpuscular Volume 92.8 fL (83.0-100.0); Mean Platelet Volume 10.8 fL (9.4-12.4); Monocytes # 0.6 K/mcL (0.0-1.3); Monocytes % 9.8 %; Neutrophils # 3.3 K/mcL (1.6-8.9); Platelet Count 223 K/mcL (140-400); Red Blood Count 4.44 M/mcL (3.82-4.97); Red Cell Distribution Width 14.2 % (11.5-14.5); Segmented Neutrophils % 56.3 %
[2018-03-18 07:04] LABS: BUN/Creatinine Ratio 39 (6-26); Blood Urea Nitrogen 29 mg/dL (8-23); Calcium 9.2 mg/dL (8.6-10.3); Carbon Dioxide 25 mEq/L (23-29); Chloride 108 mEq/L (98-107); Glucose 83 mg/dL (70-105); Osmolality,Calculated 295 (280-300); Potassium 4.1 mEq/L (3.5-5.1); Sodium 140 mEq/L (136-145); eGFR For Non-African Americans > 60 (> 60)
[2018-03-18] MEDS: Loratadine 10 MG TABLET PO SCH (09:31)
[2018-03-18] MEDS: amLODIPine 5 MG TABLET PO SCH (11:33)
--- NOTE | 2018-03-18 12:09 | Internal Med Progress Note ---
Hospitalist Progress Note - Encounter Date of Encounter: 03/18/18 Time of Encounter: 12:06 - Subjective Interval History: Seen and examined at bedside today, continues to have confusion, history of advanced dementia. No acute changes in condition. Continuing to have hypertension. No family at bedside to discuss POC - Exam Vitals: Temp Pulse Resp BP Pulse Ox 98.3 F 88 17 210/106 96 03/18/18 12:01 03/18/18 12:03/18/18 12:03/18/18 12:03/18/18 12:01 Exam: PHYSICAL EXAMINATION: GENERAL: The patient is an ill-appearing elderly female is in no apparent distress. She is alert to self only HEENT: Pupils are equal, round, and reactive to light and accommodation. LUNGS: Clear/diminished to auscultation bilaterally AP and L. HEART: Regular rate and rhythm, S1, S2 without murmur rubs or gallops. ABDOMEN: Soft, nontender, and nondistended. Positive bowel sounds. EXTREMITIES: Bilateral lower extremities with dry cracked skin and eczema PSYCHIATRIC: Anxious and confused - Assessment and Plan (1) Hypertensive encephalopathy Current Visit: Yes Status: Acute Assessment and Plan: History of hypertension. Presents with hypertensive urgency and altered mental status, patient lives in a nursing facility and it was reported the patient has had an increase in confusion and alterations in mental status. At baseline the patient suffers from advanced dementia, unclear if she is truly altered; awaiting family's arrival for further discussion consider hypertensive encephalopathy as cause of mental status alterations. Resume home blood pressure medications, and start PRN hydralazine for SBP greater than 160, if BP does not improve patient will be placed on IV antihypertensives 03/18--confusion persists. However, I have taken care of the patient on prior admissions and she now appears to be at her baseline. She does have a history of advanced dementia. Continues to have intermittent episodes of hypertension tension, treating with when necessary hydralazine and Cozaar. I will add 5 mg of Norvasc at this time and closely monitor. (2) Hypertensive urgency Current Visit: Yes Status: Acute Assessment and Plan: As above (3) Depression with anxiety Current Visit: Yes Status: Acute Assessment and Plan: Continue psychiatric medications Patient continuing to endorse depression and appears to be anxious and weepy at times (4) Altered mental status Current Visit: Yes Status: Acute Assessment and Plan: Chronic with advanced stage dementia Continue dementia medications volunteer services assistant and PT OT seeing in consultation It does not appear that the patient will be a safe candidate to return to assisted living We will discuss with son who is power of senior trial attorney (5) Dementia Current Visit: No Status: Chronic Assessment and Plan: As above (6) Essential hypertension Current Visit: No Status: Chronic Assessment and Plan: As above (7) Hypothyroidism Current Visit: No Status: Chronic Assessment and Plan: Continue Synthroid (8) DVT prophylaxis Current Visit: Yes Status: Acute Assessment and Plan: Lovenox - Time Spent with Patient Total time spent is greater than 50% in coordination of care (as documented) at patient's floor/unit and/or counseling patient: less than 15 minutes Plan of Care Discussed with: patient Internal Medicine: Result - Labs CBC & Chem 7: 03/18/18 04:35 03/18/18 04:35 Labs: Short CBC 03/18/18 Range/Units 04:35 WBC 5.8 (4.3-11.1) K/mcL Hgb 13.1 (11.5-15.4) g/dL Hct 41.2 (35.3-44.9) % Plt Count 223 (140-400) K/mcL Neutrophils # 3.3 (1.6-8.9) K/mcL BMP 03/18/18 04:35 Sodium 140 Potassium 4.1 Chloride 108 H Carbon Dioxide 25 BUN 29 H Creatinine 0.74 Glucose 83 Calcium 9.2 Urine 03/17/18 Range/Units 18:00 Urine Color Yellow (Yellow) Urine Clarity Clear (Clear) Urine pH 7.5 (5.0-8.0) pH Units Ur Specific [place] 1.006 L (1.010-1.025) Urine Protein Trace (Neg-Trace) mg/dL Urine Glucose (UA) Normal (Normal) mg/dL - ABG Interpretation ABG results: PT/INR, D-dimer PT 10.4 Seconds (9.4-12.1) 03/17/18 14:09 Consult Discharge Plan - Plan Referrals: Chris Bhatti MD [Primary Care Provider] - (4) Altered mental status Qualifiers: Altered mental status type: unspecified Qualified Code(s): R41.82 - Altered mental status, unspecified (5) Dementia Qualifiers: Dementia type: Alzheimer's disease Alzheimer's disease onset: late-onset Dementia behavioral disturbance: without behavioral disturbance Qualified Code( s): G30.1 - Alzheimer's disease with late onset; F02.80 - Dementia in other diseases classified elsewhere without behavioral disturbance; F02.80 - Dementia in other diseases classified elsewhere without behavioral disturbance; F02.80 - Dementia in other diseases classified elsewhere without behavioral disturbance (7) Hypothyroidism Qualifiers: Hypothyroidism type: unspecified Qualified Code(s): E03.9 - Hypothyroidism, unspecified
[2018-03-19] MEDS: *HR* Enoxaparin 40 MG/0.4 ML SYRINGE SQ SCH (05:43)
[2018-03-19 07:34] LABS: Basophils % 0.5 %; Eosinophils # 0.3 K/mcL (0.0-0.6); Eosinophils % 3.8 %; Hematocrit 45.7 % (35.3-44.9); Immature Granulocytes % 0.3 % (0-4); Lymphocytes % 24.7 %; Mean Corpuscular HGB Conc 32.2 g/dL (31.6-35.5); Mean Corpuscular Hemoglobin 29.9 pg (28.0-33.3); Mean Corpuscular Volume 92.9 fL (83.0-100.0); Mean Platelet Volume 10.6 fL (9.4-12.4); Monocytes # 0.6 K/mcL (0.0-1.3); Monocytes % 7.5 %; Neutrophils # 5.1 K/mcL (1.6-8.9); Platelet Count 244 K/mcL (140-400); Red Blood Count 4.92 M/mcL (3.82-4.97); Red Cell Distribution Width 14.2 % (11.5-14.5); Segmented Neutrophils % 63.2 %
[2018-03-19 07:38] LABS: Hemoglobin 14.7 g/dL (11.5-15.4)
[2018-03-19 07:58] LABS: BUN/Creatinine Ratio 38 (6-26); Blood Urea Nitrogen 30 mg/dL (8-23); Calcium 9.6 mg/dL (8.6-10.3); Carbon Dioxide 25 mEq/L (23-29); Chloride 107 mEq/L (98-107); Glucose 94 mg/dL (70-105); Osmolality,Calculated 296 (280-300); Potassium 3.8 mEq/L (3.5-5.1); Sodium 140 mEq/L (136-145); eGFR For Non-African Americans > 60 (> 60)
[2018-03-19] MEDS: amLODIPine 5 MG TABLET PO SCH (08:53)
[2018-03-19] MEDS: Loratadine 10 MG TABLET PO SCH (08:54)
[2018-03-19] MEDS ORDERED: Isovue-370 500 ML INFUS..BTL IV ONE (14:15)
[2018-03-19] MEDS ORDERED: amLODIPine 5 MG TABLET PO ONE (14:35)
--- NOTE | 2018-03-19 14:35 | Internal Med Progress Note ---
Hospitalist Progress Note - Encounter Date of Encounter: 03/19/18 Time of Encounter: 14:33 - Subjective Interval History: Seen and examined at bedside today, continues to have confusion, history of advanced dementia. No acute changes in condition. Continuing to have hypertension. - Exam Vitals: Temp Pulse Resp BP Pulse Ox 97.6 F 55 16 176/76 95 03/19/18 12:16 03/19/18 12:16 03/19/18 12:16 03/19/18 12:16 03/19/18 12:16 Exam: PHYSICAL EXAMINATION: GENERAL: The patient is an ill-appearing elderly female is in no apparent distress. She is alert to self and somewhat to place today able to state that she is in the hospital HEENT: Pupils are equal, round, and reactive to light and accommodation. LUNGS: Clear/diminished to auscultation bilaterally AP and L. HEART: Regular rate and rhythm, S1, S2 without murmur rubs or gallops. ABDOMEN: Soft, nontender, and nondistended. Positive bowel sounds. EXTREMITIES: Bilateral lower extremities with dry cracked skin and eczema PSYCHIATRIC: Anxious and confused but confusion improving at this time, continues to display poor safety awareness. - Assessment and Plan (1) Altered mental status Current Visit: Yes Status: Acute Assessment and Plan: Patient has chronic dementia Mental status somewhat improved today with presence of family members However, this morning prior to arrival of family patient appeared to be confused , disoriented and inappropriate Continue dementia medications administrative services assistant and PT OT seeing in consultation It does not appear that the patient will be a safe candidate to return to assisted living POC discussed with son who is POA; consider d/c to SNF (2) Hypertensive encephalopathy Current Visit: Yes Status: Suspected Assessment and Plan: History of hypertension. Presents with hypertensive urgency and altered mental status, patient lives in a nursing facility and it was reported the patient has had an increase in confusion and alterations in mental status. At baseline the patient suffers from dementia, unclear if she is truly altered; awaiting family' s arrival for further discussion consider hypertensive encephalopathy as cause of mental status alterations. Resume home blood pressure medications, and start PRN hydralazine for SBP greater than 160, if BP does not improve patient will be placed on IV antihypertensives 03/19--confusion persists. However, patient appears more appropriate with familiar faces and family present. [id number] at bedside and reports that she seems to be back to baseline mental status. Unclear if this is truly hypertensive encephalopathy versus further decline in mental status secondary to advanced dementia. Today, patient's blood pressure continues to remain elevated at 160s-170s. We will continue to titrate antihypertensive medications. Discuss with son who is the power of trust and estates attorney regarding safety concerns at discharge. Awaiting PT/OT and social service to assist in setting of discharge. (3) Hypertensive urgency Current Visit: Yes Status: Acute Assessment and Plan: As above (4) Depression with anxiety Current Visit: Yes Status: Acute Assessment and Plan: Continue antidepressants and anxiolytic medications depressed d/t decline in mental status (5) Dementia Current Visit: No Status: Chronic Assessment and Plan: As above (6) Essential hypertension Current Visit: No Status: Chronic Assessment and Plan: As above (7) Hypothyroidism Current Visit: No Status: Chronic Assessment and Plan: Continue home Synthroid (8) DVT prophylaxis Current Visit: Yes Status: Acute Assessment and Plan: SQ Lovenox - Time Spent with Patient Total time spent is greater than 50% in coordination of care (as documented) at patient's floor/unit and/or counseling patient: 25 - 35 minutes Plan of Care Discussed with: family Internal Medicine: Result - Labs CBC & Chem 7: 03/19/18 06:49 03/19/18 06:49 - ABG Interpretation ABG results: PT/INR, D-dimer PT 10.4 Seconds (9.4-12.1) 03/17/18 14:09 Consult Discharge Plan - Plan Referrals: Chris Bhatti MD [Primary Care Provider] - (1) Altered mental status Qualifiers: Altered mental status type: unspecified Qualified Code(s): R41.82 - Altered mental status, unspecified (5) Dementia Qualifiers: Dementia type: Alzheimer's disease Alzheimer's disease onset: late-onset Dementia behavioral disturbance: without behavioral disturbance Qualified Code( s): G30.1 - Alzheimer's disease with late onset; F02.80 - Dementia in other diseases classified elsewhere without behavioral disturbance (7) Hypothyroidism Qualifiers: Hypothyroidism type: unspecified Qualified Code(s): E03.9 - Hypothyroidism, unspecified
--- NOTE | 2018-03-19 14:59 | Electrocardiograph Report ---
[facility] Test Date: 2018-03-17 Pat Name: Demi Valdovinos Department: [id number] Room: 3B41 Gender: F Stunt Performer: : 1940 Requested By: Solange Cortes Order Number: [id number] Reading MD: Albert Mccoy Measurements Intervals [place] Rate: 69 P: 52 ID: [id number] QRS: 47 QRSD: 137 T: 35 QT: 467 QTc: 501 Interpretive Statements Sinus rhythm Probable left atrial enlargement Right bundle branch block Electronically Signed On 03-19-2018 14:57:42 EDT by Albert Mccoy
[2018-03-19] MEDS: DiphenhydraMINE CREAM 28.4 GM TUBE TP PRN (21:44)
[2018-03-20] MEDS: *HR* Enoxaparin 40 MG/0.4 ML SYRINGE SQ SCH (06:13)
[2018-03-20 07:15] LABS: Basophils % 0.5 %; Eosinophils # 0.2 K/mcL (0.0-0.6); Eosinophils % 3.2 %; Hematocrit 44.8 % (35.3-44.9); Hemoglobin 14.4 g/dL (11.5-15.4); Immature Granulocytes % 0.2 % (0-4); Lymphocytes # 1.8 K/mcL (0.6-4.6); Lymphocytes % 27.7 %; Mean Corpuscular HGB Conc 32.1 g/dL (31.6-35.5); Mean Corpuscular Hemoglobin 29.9 pg (28.0-33.3); Mean Corpuscular Volume 92.9 fL (83.0-100.0); Mean Platelet Volume 10.3 fL (9.4-12.4); Monocytes # 0.6 K/mcL (0.0-1.3); Monocytes % 8.8 %; Neutrophils # 3.9 K/mcL (1.6-8.9); Platelet Count 227 K/mcL (140-400); Red Blood Count 4.82 M/mcL (3.82-4.97); Segmented Neutrophils % 59.6 %
[2018-03-20 07:38] LABS: BUN/Creatinine Ratio 48 (6-26); Blood Urea Nitrogen 40 mg/dL (8-23); Calcium 9.4 mg/dL (8.6-10.3); Carbon Dioxide 25 mEq/L (23-29); Chloride 111 mEq/L (98-107); Glucose 85 mg/dL (70-105); Osmolality,Calculated 301 (280-300); Potassium 4.2 mEq/L (3.5-5.1); Sodium 141 mEq/L (136-145); eGFR For Non-African Americans > 60 (> 60)
[2018-03-20] MEDS: amLODIPine 5 MG TABLET PO SCH (08:05)
[2018-03-20] MEDS: Loratadine 10 MG TABLET PO SCH (08:05)
--- NOTE | 2018-03-20 10:51 | Internal Med Progress Note ---
Hospitalist Progress Note - Encounter Date of Encounter: 03/20/18 Time of Encounter: 10:51 - Subjective Interval History: Seen and examined at bedside today, appears to be more oriented today with confusion. However, is still displaying pseudobulbar affect. No acute changes in condition. Blood pressure has improved with increase in calcium channel hernandez dose - Exam Vitals: Temp Pulse Resp BP Pulse Ox 97.8 F 64 15 122/68 95 03/20/18 06:34 03/20/18 06:34 03/20/18 06:34 03/20/18 06:34 03/20/18 06:34 Exam: PHYSICAL EXAMINATION: GENERAL: The patient is an ill-appearing elderly female is in no apparent distress. She is alert to self and somewhat to place today able to state that she is in the hospital HEENT: Pupils are equal, round, and reactive to light and accommodation. LUNGS: Clear/diminished to auscultation bilaterally AP and L. HEART: Regular rate and rhythm, S1, S2 without murmur rubs or gallops. ABDOMEN: Soft, nontender, and nondistended. Positive bowel sounds. EXTREMITIES: Bilateral lower extremities with dry cracked skin and eczema PSYCHIATRIC: Anxious and confused but confusion improving at this time, continues to display poor safety awareness. Pseudobulbar affect - Assessment and Plan (1) Altered mental status Current Visit: Yes Status: Acute Assessment and Plan: Patient has chronic dementia Mental status somewhat improved today with presence of family members However, this morning prior to arrival of family patient appeared to be confused , disoriented and inappropriate Continue dementia medications vice president client services and PT OT seeing in consultation It does not appear that the patient will be a safe candidate to return to assisted living POC discussed with son who is POA; consider d/c to SNF 03/20--patient now back to baseline mental status displaying brief episodes of confusion. Continuing to display pseudobulbar affect which is to be expected with advancing dementia. Patient may benefit from Nuedexta however this is currently not within the hospital formulary. Discussed with social services technician and nurse navigator regarding prescription for Nuedexta upon discharge to [facility]. Awaiting approval from the [facility]. (2) Hypertensive encephalopathy Current Visit: Yes Status: Resolved Assessment and Plan: Presented with HTN encephalopathy BP improving with uptitration of anti-HTN meds monitor mental status now back to baseline (3) Hypertensive urgency Current Visit: Yes Status: Resolved Assessment and Plan: resolved (4) Depression with anxiety Current Visit: Yes Status: Acute Assessment and Plan: Continue antidepressants and anxiolytic medications depressed d/t decline in mental status (5) Dementia Current Visit: No Status: Chronic Assessment and Plan: As above (6) Essential hypertension Current Visit: No Status: Chronic Assessment and Plan: As above (7) Hypothyroidism Current Visit: No Status: Chronic Assessment and Plan: Continue home Synthroid (8) DVT prophylaxis Current Visit: Yes Status: Acute Assessment and Plan: SQ Lovenox - Time Spent with Patient Total time spent is greater than 50% in coordination of care (as documented) at patient's floor/unit and/or counseling patient: less than 15 minutes Plan of Care Discussed with: patient Internal Medicine: Result - Labs CBC & Chem 7: 03/20/18 06:00 03/20/18 06:00 Labs: Short CBC 03/20/18 Range/Units 06:00 WBC 6.6 (4.3-11.1) K/mcL Hgb 14.4 (11.5-15.4) g/dL Hct 44.8 (35.3-44.9) % Plt Count 227 (140-400) K/mcL Neutrophils # 3.9 (1.6-8.9) K/mcL BMP 03/20/18 06:00 Sodium 141 Potassium 4.2 Chloride 111 H Carbon Dioxide 25 BUN 40 H Creatinine 0.84 Glucose 85 Calcium 9.4 - ABG Interpretation ABG results: PT/INR, D-dimer PT 10.4 Seconds (9.4-12.1) 03/17/18 14:09 Consult Discharge Plan - Plan Referrals: Chris Bhatti MD [Primary Care Provider] - (1) Altered mental status Qualifiers: Altered mental status type: unspecified Qualified Code(s): R41.82 - Altered mental status, unspecified (5) Dementia Qualifiers: Dementia type: Alzheimer's disease Alzheimer's disease onset: late-onset Dementia behavioral disturbance: without behavioral disturbance Qualified Code( s): G30.1 - Alzheimer's disease with late onset; F02.80 - Dementia in other diseases classified elsewhere without behavioral disturbance (7) Hypothyroidism Qualifiers: Hypothyroidism type: unspecified Qualified Code(s): E03.9 - Hypothyroidism, unspecified
[2018-03-21] MEDS: *HR* LORazepam 0.5 MG TABLET PO PRN ×2 (02:21→16:05)
[2018-03-21 05:52] LABS: Basophils % 0.4 %; Eosinophils # 0.3 K/mcL (0.0-0.6); Eosinophils % 5.3 %; Hematocrit 41.8 % (35.3-44.9); Hemoglobin 13.1 g/dL (11.5-15.4); Immature Granulocytes % 0.2 % (0-4); Lymphocytes # 1.6 K/mcL (0.6-4.6); Lymphocytes % 28.6 %; Mean Corpuscular HGB Conc 31.3 g/dL (31.6-35.5); Mean Corpuscular Hemoglobin 29.4 pg (28.0-33.3); Mean Corpuscular Volume 93.9 fL (83.0-100.0); Mean Platelet Volume 10.7 fL (9.4-12.4); Monocytes # 0.5 K/mcL (0.0-1.3); Monocytes % 9.1 %; Neutrophils # 3.2 K/mcL (1.6-8.9); Platelet Count 210 K/mcL (140-400); Red Blood Count 4.45 M/mcL (3.82-4.97); Red Cell Distribution Width 14.2 % (11.5-14.5); Segmented Neutrophils % 56.4 %
[2018-03-21] MEDS: *HR* Enoxaparin 40 MG/0.4 ML SYRINGE SQ SCH (06:02)
[2018-03-21 06:20] LABS: BUN/Creatinine Ratio 50 (6-26); Blood Urea Nitrogen 36 mg/dL (8-23); Calcium 9.3 mg/dL (8.6-10.3); Carbon Dioxide 24 mEq/L (23-29); Chloride 110 mEq/L (98-107); Glucose 88 mg/dL (70-105); Osmolality,Calculated 300 (280-300); Potassium 3.7 mEq/L (3.5-5.1); Sodium 141 mEq/L (136-145); eGFR For Non-African Americans > 60 (> 60)
[2018-03-21] MEDS: amLODIPine 5 MG TABLET PO SCH (10:41)
[2018-03-21] MEDS: Loratadine 10 MG TABLET PO SCH (10:42)
--- NOTE | 2018-03-21 14:56 | Internal Med Progress Note ---
Hospitalist Progress Note - Encounter Date of Encounter: 03/21/18 Time of Encounter: 11:00 - Subjective Interval History: Patient was seen and assessed at bedside at 11 AM. Patient has alert, awake, oriented to who the president is when she sees him on TV. Patient is not oriented to place or time. Patient is at times tearful and states that she wants to go home. Patient will be placed in [facility] tomorrow. Patient has returned to baseline mentation and denies chest pain, nausea, vomiting, dizziness, headache, abdominal pain. - Exam Vitals: Temp Pulse Resp BP Pulse Ox 98.1 F 73 18 145/78 95 03/21/18 11:31 03/21/18 11:31 03/21/18 11:31 03/21/18 11:31 03/21/18 11:31 Exam: General: Pt resting quietly on bed, no distress. Skin: pwd, no rashes, lesions, redness Neurological: Pt is alert and awake, oriented x 3, Speech is clear, PERRLA, EOMI , no nystagmus, no pronator drift. strength equal x 4 extremities HEENT: mucous mumbranes moist, no conjuctival pallor Neck: supple, no tracheal deviation, no lymphadenopathy, tenderness, no thyromegaly Heart: S1S2 heard without gallops, clicks, murmurs, no bradycardia or tachycardia, pt has no peripheral edema, pedal and radial pulses palpable bilaterally. Lungs: clear throughout without wheezing, rales, or ronchi, respirations are unlabored Abdomen: soft and non tender with bowel sound present, no hepatomegaly. Psych: Normal affect with good eye contact - Assessment and Plan (1) Dementia Current Visit: No Status: Chronic Assessment and Plan: Patient apparently has returned to baseline. She is alert, oriented to name only. (2) Hypothyroidism Current Visit: Yes Status: Chronic Assessment and Plan: Chronic. Continue home medications. (3) Essential hypertension Current Visit: Yes Status: Chronic Assessment and Plan: Chronic. Continue home medications. Well controlled. (4) Altered mental status Current Visit: Yes Status: Resolved Assessment and Plan: 03/21-Patient has chronic dementia, patient apparently has returned to baseline mentation. check services clerk and PT OT seeing in consultation Pt will be discharged to [facility] tomorrow. Continue to monitor for safety and falls. 03/20--patient now back to baseline mental status displaying brief episodes of confusion. Continuing to display pseudobulbar affect which is to be expected with advancing dementia. Patient may benefit from Nuedexta however this is currently not within the hospital formulary. Discussed with social worker psychiatric and nurse navigator regarding prescription for Nuedexta upon discharge to [facility]. Awaiting approval from the [facility]. (5) Depression with anxiety Current Visit: Yes Status: Chronic Assessment and Plan: Chronic. Continue home medications. (6) DVT prophylaxis Current Visit: Yes Status: Acute Assessment and Plan: Continue Lovenox (7) Hypertensive urgency Current Visit: Yes Status: Resolved Assessment and Plan: Plan as above. (8) Hypertensive encephalopathy Current Visit: Yes Status: Resolved Assessment and Plan: Resolved. Blood pressure is well controlled and at goal for age. Presented with HTN encephalopathy BP improving with uptitration of anti-HTN meds monitor mental status now back to baseline DVT Prophylaxis: As above - Time Spent with Patient Total time spent is greater than 50% in coordination of care (as documented) at patient's floor/unit and/or counseling patient: less than 15 minutes Plan of Care Discussed with: patient Internal Medicine: Result - Labs CBC & Chem 7: 03/21/18 04:35 03/21/18 04:35 Labs: Short CBC 03/21/18 Range/Units 04:35 WBC 5.7 (4.3-11.1) K/mcL Hgb 13.1 (11.5-15.4) g/dL Hct 41.8 (35.3-44.9) % Plt Count 210 (140-400) K/mcL Neutrophils # 3.2 (1.6-8.9) K/mcL BMP 03/21/18 04:35 Sodium 141 Potassium 3.7 Chloride 110 H Carbon Dioxide 24 BUN 36 H Creatinine 0.72 Glucose 88 Calcium 9.3 - ABG Interpretation ABG results: PT/INR, D-dimer PT 10.4 Seconds (9.4-12.1) 03/17/18 14:09 Consult Discharge Plan - Plan Referrals: Chris Bhatti MD [Primary Care Provider] - (1) Dementia Qualifiers: Dementia type: Alzheimer's disease Alzheimer's disease onset: late-onset Dementia behavioral disturbance: without behavioral disturbance Qualified Code( s): G30.1 - Alzheimer's disease with late onset; F02.80 - Dementia in other diseases classified elsewhere without behavioral disturbance (2) Hypothyroidism Qualifiers: Hypothyroidism type: unspecified Qualified Code(s): E03.9 - Hypothyroidism, unspecified (4) Altered mental status Qualifiers: Altered mental status type: unspecified Qualified Code(s): R41.82 - Altered mental status, unspecified
[2018-03-22] MEDS: *HR* Enoxaparin 40 MG/0.4 ML SYRINGE SQ SCH (05:51)
[2018-03-22 06:25] LABS: Basophils % 0.4 %; Eosinophils # 0.2 K/mcL (0.0-0.6); Eosinophils % 3.2 %; Hematocrit 40.1 % (35.3-44.9); Hemoglobin 13.1 g/dL (11.5-15.4); Immature Granulocytes % 0.2 % (0-4); Lymphocytes # 1.7 K/mcL (0.6-4.6); Lymphocytes % 30.1 %; Mean Corpuscular HGB Conc 32.7 g/dL (31.6-35.5); Mean Corpuscular Hemoglobin 30.3 pg (28.0-33.3); Mean Corpuscular Volume 92.6 fL (83.0-100.0); Mean Platelet Volume 10.6 fL (9.4-12.4); Monocytes # 0.5 K/mcL (0.0-1.3); Monocytes % 9.4 %; Neutrophils # 3.2 K/mcL (1.6-8.9); Platelet Count 211 K/mcL (140-400); Red Blood Count 4.33 M/mcL (3.82-4.97); Red Cell Distribution Width 13.9 % (11.5-14.5); Segmented Neutrophils % 56.7 %
[2018-03-22 06:47] LABS: BUN/Creatinine Ratio 55 (6-26); Blood Urea Nitrogen 37 mg/dL (8-23); Calcium 9.4 mg/dL (8.6-10.3); Carbon Dioxide 22 mEq/L (23-29); Chloride 111 mEq/L (98-107); Glucose 87 mg/dL (70-105); Osmolality,Calculated 300 (280-300); Potassium 3.8 mEq/L (3.5-5.1); Sodium 141 mEq/L (136-145); eGFR For Non-African Americans > 60 (> 60)
[2018-03-22 07:30] VITALS: BP 130/67
[2018-03-22] MEDS: Loratadine 10 MG TABLET PO SCH (10:13)
[2018-03-22] MEDS: amLODIPine 5 MG TABLET PO SCH (10:14)
[2018-03-22] MEDS: *HR* LORazepam 0.5 MG TABLET PO PRN (10:15)
--- NOTE | 2018-03-22 13:10 | Discharge Summary ---
- NOTES TO OUTPATIENT PROVIDER Notes to Outpatient Provider: monitor BP - presented with HTN encephalopathy Date of Encounter: 03/22/18 Time of Encounter: 12:59 - Discharge Diagnosis (1) Dementia Priority: Secondary Status: Chronic Qualifiers: Dementia type: Alzheimer's disease Alzheimer's disease onset: late-onset Dementia behavioral disturbance: without behavioral disturbance Qualified Code (s): G30.1 - Alzheimer's disease with late onset; F02.80 - Dementia in other diseases classified elsewhere without behavioral disturbance (2) Hypothyroidism Priority: Secondary Status: Chronic Qualifiers: Hypothyroidism type: unspecified Qualified Code(s): E03.9 - Hypothyroidism , unspecified (3) Essential hypertension Priority: Secondary Status: Chronic (4) Altered mental status Priority: Primary Status: Resolved Qualifiers: Altered mental status type: unspecified Qualified Code(s): R41.82 - Altered mental status, unspecified (5) Depression with anxiety Priority: Secondary Status: Chronic (6) Hypertensive urgency Priority: Primary Status: Resolved (7) Hypertensive encephalopathy Priority: Primary Status: Resolved Hospital course: Ms. Valdovinos is a 77 year old female H cancer advanced dementia GERD HLD HTN thyroid disease Presneted from Assisted living with concerns of AMS Infectious process was ruled out CT of head was negative CXR with no acute process was noted to have HTN urgency SBP in 200 - suspected HTN encephalopathy. she is on multiple psych drugs as well which could contribute confusion. Her BP was controlled - She was not safe to return to assisted living status and social human services assistants consulted for ECF placement. She eventually returned to mental baseline - BP controlled, psych drugs decreased - she is hemodynamically stable and ready for discharge - Time Spent with Patient Total time spent providing and/or coordinating discharge services: - Discharge Medications Prescriptions: LORazepam [Ativan] 0.5 mg PO BID PRN 2 Days #4 tablet PRN Reason: Anxiety Home Medications: Donepezil HCl [Aricept] 10 mg PO BID 10/27/17 [History] Levothyroxine [Synthroid] 75 mcg PO 0630 10/27/17 [History] Loratadine [Claritin] 10 mg PO DAILY 10/27/17 [History] Losartan Potassium [Cozaar] 100 mg PO DAILY 10/27/17 [History] Meloxicam [Mobic] 7.5 mg PO BID 10/27/17 [History] Memantine HCl 10 mg PO BID 10/27/17 [History] Montelukast [Singulair] 10 mg PO HS 10/27/17 [History] Tramadol HCl [Ultram] 50 mg PO BID PRN 10/27/17 [History] Escitalopram [Lexapro] 10 mg PO DAILY 10/28/17 [History] Quetiapine Fumarate [Seroquel] 25 mg PO HS 10/28/17 [History] Sertraline [Zoloft] 25 mg PO DAILY 10/28/17 [History] LORazepam [Ativan] 0.5 mg PO BID PRN 2 Days #4 tablet 03/22/18 [Rx] amLODIPine [Norvasc] 10 mg PO DAILY tablet 03/22/18 [Rx] Allergies/Adverse Reactions: 3 Allergy/AdvReac Type Severity Reaction Status Date / Time Penicillins Allergy See Verified 10/28/17 11:12 Comments morphine AdvReac See Verified 10/28/17 11:12 Comments Date of admission: 03/19/18 12:18 Primary care physician: Chris Bhatti MD Discharging clinician: Veronica Zimmer Anticipated date of discharge: 03/22/18 - Constitutional Vitals: Temp Pulse Resp BP Pulse Ox 98.0 F 61 16 130/67 94 03/22/18 07:29 03/22/18 07:29 03/22/18 07:29 03/22/18 07:29 03/22/18 07:29 General appearance: Present: A&O X 1 Exam: see above - Head Head exam: Present: atraumatic, normocephalic - Eye Eye exam: Present: PERRL, conjuntiva pink, sclera anicteric Pupils: Present: PERRL - Neck Neck exam general surgery: Present: supple, trachea midline. Absent: lymphadenopathy - Respiratory Respiratory exam: Present: CTAB. Absent: accessory muscle use, rales, rhonchi, wheezes - Cardiovascular Cardiovascular exam: Present: RRR, +S1, +S2. Absent: diastolic murmur, gallop, rubs, systolic murmur - GI/Abdominal GI/Abdominal exam: Present: normal bowel sounds, soft, no peritoneal signs. Absent: distended, tenderness - Extremities Exam Extremities exam: Present: warm, radial pulses palpable and symmetrical. Absent : calf tenderness, cyanotic, pedal edema - Neurological Exam Neurological exam: Present: CN II-XII intact, oriented X3, no focal deficits. Absent: pronater drift, facial droop, speech deficit - Skin Skin exam: Present: dry, intact - Patient Status Disposition: Transfer SNF Condition: Fair Functional capacity at discharge: uses cane/walker Overall status at discharge: patient is back to baseline - Discharge Instructions Follow Up With: Chris Bhatti MD [Primary Care Provider] - - Diet and Activity Activity: as per physical therapy Diet: advance to your usual diet
--- NOTE | 2018-03-22 14:02 | Physician Discharge Referral ---
Extended[facility] Referral Info Transfer To: [facility] Provider in Charge: Veronica Zimmer Provider in Charge after Transfer: PCP Institutional Level of Care: Skilled - Diagnosis (1) Dementia Priority: Secondary Status: Chronic (2) Hypothyroidism Priority: Secondary Status: Chronic (3) Essential hypertension Priority: Secondary Status: Chronic (4) Altered mental status Priority: Secondary Status: Resolved (5) Depression with anxiety Priority: Secondary Status: Chronic (6) Hypertensive urgency Priority: Primary Status: Resolved (7) Hypertensive encephalopathy Priority: Primary Status: Resolved - Transfer Medications Home Medications: Donepezil HCl [Aricept] 10 mg PO BID 10/27/17 [History] LORazepam [Ativan] 0.5 mg PO BID PRN 10/27/17 [History] Levothyroxine [Synthroid] [place] [address]/27/17 [History] Loratadine [Claritin] 10 mg PO DAILY 10/27/17 [History] Losartan Potassium [Cozaar] 100 mg PO DAILY 10/27/17 [History] Meloxicam [Mobic] 7.5 mg PO BID 10/27/17 [History] Memantine HCl 10 mg PO BID 10/27/17 [History] Montelukast [Singulair] 10 mg PO HS 10/27/17 [History] Tramadol HCl [Ultram] 50 mg PO BID PRN 10/27/17 [History] Escitalopram [Lexapro] 10 mg PO DAILY 10/28/17 [History] Quetiapine Fumarate [Seroquel] 25 mg PO HS 10/28/17 [History] Sertraline [Zoloft] 25 mg PO DAILY 10/28/17 [History] amLODIPine [Norvasc] 10 mg PO DAILY tablet 03/22/18 [Rx] Allergies/Adverse Reactions: 3 Allergy/AdvReac Type Severity Reaction Status Date / Time Penicillins Allergy See Verified 10/28/17 11:12 Comments morphine AdvReac See Verified 10/28/17 11:12 Comments - Respiratory Orders Smoking Cessation: Smoking cessation has been advised. For more information, call the [place] Tobacco Quit Line at 9-910-FEPQ-NOW. CERTIFICATION: I certify that the transfer of the above named patient to an Extended Care Facility is necessary for the continuing treatment of the diagnosis listed. The above information is true and accurate reflection of patient's current condition. Confidential - Redisclosure prohibited without a patient's written consent.
== END 2018-03-22 15:11 | DRG 79 ==
LOC: EMEROOARM 13:12 → 3BNU 13:12
PROVIDERS: ADMIT Internal Medicine; ATTEND Internal Medicine

== ENCOUNTER 2019-04-17 18:33 | Inpatient (IN) ==
[2019-04-17 18:46] LABS: Hematocrit 38.6 % (35.3-44.9); Hemoglobin 12.3 g/dL (11.5-15.4); Mean Corpuscular HGB Conc 31.9 g/dL (31.6-35.5); Mean Corpuscular Volume 94.1 fL (83.0-100.0); Mean Platelet Volume 10.4 fL (9.4-12.4); Platelet Count 217 K/mcL (140-400); Red Cell Distribution Width 13.8 % (11.5-14.5); White Blood Count 5.3 K/mcL (4.3-11.1)
[2019-04-17 18:54] LABS: Prothrombin Time 10.8 Seconds (9.4-12.1)
[2019-04-17 18:56] LABS: Activated Partial Thrombo Time 30.4 Seconds (26.0-36.0)
[2019-04-17 19:05] LABS: BUN/Creatinine Ratio 30 (6-26); Blood Urea Nitrogen 44 mg/dL (8-23); Calcium 8.9 mg/dL (8.6-10.3); Carbon Dioxide 22 mEq/L (23-29); Chloride 113 mEq/L (98-107); Glucose 144 mg/dL (70-105); Osmolality,Calculated 306 (280-300); Sodium 141 mEq/L (136-145); Troponin I < 0.03 ng/mL (< 0.04); eGFR For African Americans 41 (> 60); eGFR For Non-African Americans 34 (> 60)
[2019-04-17] MEDS ORDERED: 0.9 % Sodium Chloride 500 ML IVC ONE (19:49)
[2019-04-17] MEDS ORDERED: Aspirin 325 MG TABLET PO ONE (19:49)
[2019-04-17] MEDS: *HR* Heparin 5,000 UNIT/ML VIAL SQ SCH (22:04)
[2019-04-18 05:30] LABS: Alanine Aminotransferase 8 Units/L (7-52); Albumin 3.5 g/dL (3.5-5.7); Albumin/Globulin Ratio 1.2 (1.1-2.2); Alkaline Phosphatase 73 Units/L (34-104); Aspartate Amino Transferase 12 Units/L (13-39); BUN/Creatinine Ratio 36 (6-26); Bilirubin,Total 0.5 mg/dL (0.3-1.0); Blood Urea Nitrogen 31 mg/dL (8-23); Calcium 9.1 mg/dL (8.6-10.3); Carbon Dioxide 23 mEq/L (23-29); Chloride 109 mEq/L (98-107); Chol/HDL Ratio 4.2 (0-4.9); Cholesterol 175 mg/dL (< 200); Globulin 2.9 g/dL (2.4-3.5); Glucose 85 mg/dL (70-105); HDL Cholesterol 42 mg/dL (40-59); LDL Cholesterol,Calculated 109 mg/dL (0-99); Osmolality,Calculated 298 (280-300); Potassium 3.6 mEq/L (3.5-5.1); Sodium 141 mEq/L (136-145); Total Protein 6.4 g/dL (6.4-8.9); Triglycerides 120 mg/dL (< 150); Troponin I < 0.03 ng/mL (< 0.04); eGFR For African Americans > 60 (> 60); eGFR For Non-African Americans > 60 (> 60)
[2019-04-18] MEDS: *HR* Heparin 5,000 UNIT/ML VIAL SQ SCH ×3 (06:05→22:30)
[2019-04-18 06:50] LABS: Estimated Average Glucose 128 mg/dl
[2019-04-18] MEDS ORDERED: *HR* LORazepam 0.5 MG TABLET PO PRN (08:14)
[2019-04-18] MEDS: amLODIPine 5 MG TABLET PO SCH (08:50)
[2019-04-18 09:25] LABS: Bilirubin,Urine Negative (Negative); Blood,Urine Small (Negative); Clarity,Urine Cloudy (Clear); Color,Urine Yellow (Yellow); Glucose,Urine (UA) Normal (Normal); Ketones,Urine Negative (Negative); Leukocyte Esterase,Urine Moderate (Negative); Nitrite,Urine Positive (Negative); Protein,Urine Negative (Neg-Trace); Specific Gravity,Urine 1.017 (1.010-1.025); Urobilinogen,Urine Normal (Normal)
[2019-04-18 09:28] LABS: Bacteria,Urine Many per hpf (None-Few); Hyaline Casts,Urine None Seen per lpf (None-Few); Squamous Epithelial Cell,Urine None Seen per lpf (None-Few); WBC,Urine TNTC per hpf (0-3)
[2019-04-18] MEDS: cefTRIAXone 1,000 MG in Water for inj. (sterile) 10 ML IVP SCH (13:12)
[2019-04-18] MEDS: 0.9 % Sodium Chloride 1,000 ML IVC SCH (13:28)
[2019-04-18] MEDS: Loratadine 10 MG TABLET PO SCH (22:30)
[2019-04-19] MEDS: 0.9 % Sodium Chloride 1,000 ML IVC SCH (02:16)
[2019-04-19] MEDS: *HR* Heparin 5,000 UNIT/ML VIAL SQ SCH ×3 (05:27→20:28)
[2019-04-19 08:17] LABS: BUN/Creatinine Ratio 26 (6-26); Blood Urea Nitrogen 20 mg/dL (8-23); Calcium 9.2 mg/dL (8.6-10.3); Carbon Dioxide 24 mEq/L (23-29); Chloride 108 mEq/L (98-107); Glucose 90 mg/dL (70-105); Osmolality,Calculated 296 (280-300); Potassium 3.7 mEq/L (3.5-5.1); Sodium 142 mEq/L (136-145); eGFR For African Americans > 60 (> 60); eGFR For Non-African Americans > 60 (> 60)
[2019-04-19] MEDS: cefTRIAXone 1,000 MG in Water for inj. (sterile) 10 ML IVP SCH (10:29)
[2019-04-19] MEDS: amLODIPine 5 MG TABLET PO SCH (10:29)
[2019-04-19] MEDS: Aspirin 81 MG TAB.CHEW PO SCH (10:29)
[2019-04-19] MEDS: Loratadine 10 MG TABLET PO SCH (20:28)
[2019-04-20] MEDS: *HR* Heparin 5,000 UNIT/ML VIAL SQ SCH (05:19)
[2019-04-20] MEDS: Aspirin 81 MG TAB.CHEW PO SCH (07:51)
[2019-04-20] MEDS: cefTRIAXone 1,000 MG in Water for inj. (sterile) 10 ML IVP SCH (07:51)
[2019-04-20] MEDS: amLODIPine 5 MG TABLET PO SCH (07:51)
[2019-04-20 11:06] VITALS: BP 129/76
== END 2019-04-20 12:43 | disposition home or self-care (01) | DRG 69 ==
LOC: EMEROOARM 18:33 → 3BNU 18:33 → SUATTDRO 21:04 → 3BNU 21:38
PROVIDERS: ADMIT Internal Medicine; ATTEND Internal Medicine

== ENCOUNTER 2019-06-22 08:23 | Inpatient (IN) ==
[2019-06-22 09:04] LABS: Prothrombin Time 11.1 Seconds (9.4-12.1)
[2019-06-22 09:06] LABS: Activated Partial Thrombo Time 30.6 Seconds (26.0-36.0)
[2019-06-22 09:14] LABS: Basophils % 0.3 %; Eosinophils # 0.2 K/mcL (0.0-0.6); Eosinophils % 1.7 %; Hematocrit 42.9 % (35.3-44.9); Hemoglobin 13.6 g/dL (11.5-15.4); Immature Granulocytes % 0.3 % (0-4); Lymphocytes # 0.9 K/mcL (0.6-4.6); Lymphocytes % 8.8 %; Mean Corpuscular HGB Conc 31.7 g/dL (31.6-35.5); Mean Corpuscular Hemoglobin 29.8 pg (28.0-33.3); Mean Corpuscular Volume 93.9 fL (83.0-100.0); Mean Platelet Volume 11.3 fL (9.4-12.4); Monocytes # 0.8 K/mcL (0.0-1.3); Monocytes % 7.6 %; Neutrophils # 8.6 K/mcL (1.6-8.9); Platelet Count 208 K/mcL (140-400); Red Blood Count 4.57 M/mcL (3.82-4.97); Red Cell Distribution Width 14.4 % (11.5-14.5); Segmented Neutrophils % 81.3 %; White Blood Count 10.6 K/mcL (4.3-11.1)
[2019-06-22 09:18] LABS: Alanine Aminotransferase 8 Units/L (7-52); Albumin/Globulin Ratio 1.1 (1.1-2.2); Alkaline Phosphatase 76 Units/L (34-104); Aspartate Amino Transferase 14 Units/L (13-39); BUN/Creatinine Ratio 31 (6-26); Bilirubin,Direct 0.1 mg/dL (0.0-0.2); Bilirubin,Indirect 0.6 mg/dL (0.0-1.0); Bilirubin,Total 0.7 mg/dL (0.3-1.0); Blood Urea Nitrogen 31 mg/dL (8-23); Calcium 9.6 mg/dL (8.6-10.3); Carbon Dioxide 23 mEq/L (23-29); Chloride 107 mEq/L (98-107); Globulin 3.6 g/dL (2.4-3.5); Glucose 100 mg/dL (70-105); Osmolality,Calculated 301 (280-300); Potassium 4.2 mEq/L (3.5-5.1); Sodium 142 mEq/L (136-145); Total Protein 7.6 g/dL (6.4-8.9); Troponin I < 0.03 ng/mL (< 0.04); eGFR For African Americans > 60 (> 60); eGFR For Non-African Americans 54 (> 60)
[2019-06-22 09:30] LABS: Thyroid Stimulating Hormone 1.446 mcIU/mL (0.340-5.600)
[2019-06-22 10:03] LABS: Bilirubin,Urine Negative (Negative); Blood,Urine Negative (Negative); Clarity,Urine Clear (Clear); Color,Urine Yellow (Yellow); Glucose,Urine (UA) Normal (Normal); Ketones,Urine Negative (Negative); Leukocyte Esterase,Urine Negative (Negative); Nitrite,Urine Negative (Negative); PH,Urine 5.5 pH Units (5.0-8.0); Protein,Urine Negative (Neg-Trace); Specific Gravity,Urine 1.025 (1.010-1.025); Urobilinogen,Urine Normal (Normal)
[2019-06-22] MEDS ORDERED: levoFLOXacin 750 MG/150 ML 750 MG/150 ML BAG IVPB ONE (10:18)
[2019-06-22] MEDS ORDERED: Piperacillin/Tazobactam 3.375 GM in 0.9 % Sodium Chloride Mini Bag 100 ML IVPB ONE ×2 (10:18→10:36)
[2019-06-22] MEDS ORDERED: 0.9 % Sodium Chloride 1,000 ML IVC ONE (10:53)
[2019-06-22 11:29] LABS: Amphetamine Screen,Urine Negative ng/mL (Cutoff=1000); Barbiturate Screen,Urine Negative ng/mL (Cutoff=200); Benzodiazepines Screen,Urine Negative ng/mL (Cutoff=200); Cannabinoid Screen,Urine Negative ng/mL (Cutoff = 50); Cocaine Screen,Urine Negative ng/mL (Cutoff= 300); Opiate Screen,Urine Negative ng/mL (Cutoff=300); Phencyclidine Screen,Urine Negative ng/mL (Cutoff=25)
[2019-06-22] MEDS ORDERED: Naloxone 0.4 MG/ML INJ IVP PRN (12:33)
[2019-06-22] MEDS ORDERED: Acetaminophen 325 MG TABLET PO PRN (12:42)
[2019-06-22] MEDS ORDERED: Ondansetron 4 MG/2 ML VIAL IVP PRN (12:42)
[2019-06-22 16:25] LABS: Adenovirus Not Detected (Not Detect); Bordetella Pertussis Not Detected (Not Detect); Chlamydophila pneumoniae Not Detected (Not Detect); Coronavirus 229E Not Detected (Not Detect); Coronavirus HKU1 Not Detected (Not Detect); Coronavirus NL63 Not Detected (Not Detect); Coronavirus OC43 Not Detected (Not Detect); Human Metapneumovirus Not Detected (Not Detect); Human Rhinovirus/Enterovirus Not Detected (Not Detect); Influenza A Subtype 2009 H1 Not Detected (Not Detect); Influenza B Not Detected (Not Detect); Mycoplasma pneumoniae Not Detected (Not Detect); Parainfluenza Virus 1 Not Detected (Not Detect); Parainfluenza Virus 2 Not Detected (Not Detect); Parainfluenza Virus 3 Not Detected (Not Detect); Parainfluenza Virus 4 Not Detected (Not Detect); Respiratory Syncytial Virus Not Detected (Not Detect)
[2019-06-22] MEDS: *HR* LORazepam 0.5 MG TABLET PO PRN (16:55)
[2019-06-22] MEDS: *HR* Heparin 5,000 UNIT/ML VIAL SQ SCH (17:27)
[2019-06-22] MEDS: Loratadine 10 MG TABLET PO SCH (21:15)
[2019-06-23] MEDS: *HR* Heparin 5,000 UNIT/ML VIAL SQ SCH ×2 (05:32→18:05)
[2019-06-23] MEDS ORDERED: Ergocalciferol (VIT D2) 50,000 UNIT (1.25MG) CAP PO SCH (09:00)
[2019-06-23] MEDS ORDERED: levoFLOXacin 750 MG/150 ML 750 MG/150 ML BAG IVPB SCH (09:00)
[2019-06-23] MEDS ORDERED: Ipratropium/Albuterol Neb 3 ML IH PRN (09:39)
[2019-06-23 10:24] LABS: Hematocrit 38.1 % (35.3-44.9); Hemoglobin 12.6 g/dL (11.5-15.4); Mean Corpuscular HGB Conc 33.1 g/dL (31.6-35.5); Mean Corpuscular Hemoglobin 30.1 pg (28.0-33.3); Mean Corpuscular Volume 91.1 fL (83.0-100.0); Mean Platelet Volume 10.9 fL (9.4-12.4); Platelet Count 171 K/mcL (140-400); Red Blood Count 4.18 M/mcL (3.82-4.97); Red Cell Distribution Width 14.3 % (11.5-14.5)
[2019-06-23] MEDS: amLODIPine 5 MG TABLET PO SCH (10:40)
[2019-06-23 10:43] LABS: BUN/Creatinine Ratio 25 (6-26); Blood Urea Nitrogen 17 mg/dL (8-23); Carbon Dioxide 23 mEq/L (23-29); Chloride 104 mEq/L (98-107); Glucose 89 mg/dL (70-105); Osmolality,Calculated 285 (280-300); Potassium 3.7 mEq/L (3.5-5.1); Sodium 137 mEq/L (136-145); eGFR For African Americans > 60 (> 60); eGFR For Non-African Americans > 60 (> 60)
[2019-06-23] MEDS: levoFLOXacin 750 MG/150 ML 750 MG/150 ML BAG IVPB SCH (18:05)
[2019-06-23] MEDS: MethylPREDNISolone 40 MG/ML VIAL IVP SCH (18:05)
[2019-06-23] MEDS: Loratadine 10 MG TABLET PO SCH (20:29)
[2019-06-24] MEDS: MethylPREDNISolone 40 MG/ML VIAL IVP SCH ×3 (04:53→15:35)
[2019-06-24] MEDS: *HR* Heparin 5,000 UNIT/ML VIAL SQ SCH ×2 (06:24→18:59)
[2019-06-24] MEDS: amLODIPine 5 MG TABLET PO SCH (08:22)
[2019-06-24] MEDS: Ipratropium/Albuterol Neb 3 ML IH SCH ×3 (10:34→22:23)
[2019-06-24] MEDS: Haloperidol Lactate 5 MG/ML VIAL IVP PRN ×2 (15:34→21:58)
[2019-06-24] MEDS: levoFLOXacin 750 MG/150 ML 750 MG/150 ML BAG IVPB SCH (18:59)
[2019-06-24] MEDS: *HR* LORazepam 0.5 MG TABLET PO PRN (19:19)
[2019-06-24] MEDS: Loratadine 10 MG TABLET PO SCH (21:58)
[2019-06-25] MEDS: MethylPREDNISolone 40 MG/ML VIAL IVP SCH ×3 (01:59→16:03)
[2019-06-25] MEDS: Ipratropium/Albuterol Neb 3 ML IH SCH ×4 (03:49→21:58)
[2019-06-25] MEDS: *HR* Heparin 5,000 UNIT/ML VIAL SQ SCH ×2 (05:31→17:40)
[2019-06-25] MEDS: amLODIPine 5 MG TABLET PO SCH (08:12)
[2019-06-25] MEDS: levoFLOXacin 750 MG/150 ML 750 MG/150 ML BAG IVPB SCH (16:03)
[2019-06-25] MEDS: *HR* LORazepam 0.5 MG TABLET PO PRN (17:39)
[2019-06-25] MEDS: Loratadine 10 MG TABLET PO SCH (20:17)
[2019-06-25] MEDS: Haloperidol Lactate 5 MG/ML VIAL IVP PRN (20:48)
[2019-06-26] MEDS: Ipratropium/Albuterol Neb 3 ML IH SCH ×4 (04:27→22:33)
[2019-06-26] MEDS: *HR* Heparin 5,000 UNIT/ML VIAL SQ SCH ×2 (06:12→17:50)
[2019-06-26] MEDS: amLODIPine 5 MG TABLET PO SCH (07:18)
[2019-06-26] MEDS: predniSONE 20 MG TABLET PO SCH (07:19)
[2019-06-26] MEDS: Haloperidol Lactate 5 MG/ML VIAL IVP PRN ×2 (07:19→23:56)
[2019-06-26] MEDS: levoFLOXacin 750 MG TABLET PO SCH (16:29)
[2019-06-26] MEDS: Loratadine 10 MG TABLET PO SCH (21:20)
[2019-06-27] MEDS: Ipratropium/Albuterol Neb 3 ML IH SCH ×4 (03:22→22:43)
[2019-06-27] MEDS: *HR* Heparin 5,000 UNIT/ML VIAL SQ SCH ×2 (06:22→19:17)
[2019-06-27] MEDS: amLODIPine 5 MG TABLET PO SCH (10:16)
[2019-06-27] MEDS: predniSONE 20 MG TABLET PO SCH (10:17)
[2019-06-27 12:03] LABS: ABG Base Excess 3 mEq/L (-2 to 3); ABG HCO3 27 mEq/L (21-27); ABG Oxygen Saturation 92 % (95-98); ABG PCO2 39 mmHg (35-45); ABG PH 7.46 pH Units (7.32-7.45); ABG PO2 62 mmHg (85-104); ABG TCO2 29 mEq/L (20-26)
[2019-06-27 12:41] LABS: Basophils % 0.4 %; Eosinophils % 0.4 %; Hematocrit 44.4 % (35.3-44.9); Immature Granulocytes % 1.4 % (0-4); Immature Platelets 3.1 % (1.1-6.1); Lymphocytes # 1.3 K/mcL (0.6-4.6); Lymphocytes % 12.5 %; Mean Corpuscular Hemoglobin 29.8 pg (28.0-33.3); Mean Corpuscular Volume 93.3 fL (83.0-100.0); Mean Platelet Volume 10.4 fL (9.4-12.4); Monocytes # 1.2 K/mcL (0.0-1.3); Monocytes % 11.2 %; Neutrophils # 7.7 K/mcL (1.6-8.9); Platelet Count 221 K/mcL (140-400); Red Blood Count 4.76 M/mcL (3.82-4.97); Red Cell Distribution Width 14.5 % (11.5-14.5); Segmented Neutrophils % 74.1 %; White Blood Count 10.3 K/mcL (4.3-11.1)
[2019-06-27 12:43] LABS: Hemoglobin 14.2 g/dL (11.5-15.4)
[2019-06-27 13:05] LABS: Alanine Aminotransferase 15 Units/L (7-52); Albumin 3.4 g/dL (3.5-5.7); Alkaline Phosphatase 68 Units/L (34-104); Aspartate Amino Transferase 16 Units/L (13-39); BUN/Creatinine Ratio 39 (6-26); Bilirubin,Total 0.4 mg/dL (0.3-1.0); Blood Urea Nitrogen 37 mg/dL (8-23); Calcium 9.6 mg/dL (8.6-10.3); Carbon Dioxide 28 mEq/L (23-29); Chloride 107 mEq/L (98-107); Globulin 3.3 g/dL (2.4-3.5); Glucose 123 mg/dL (70-105); Osmolality,Calculated 310 (280-300); Potassium 3.7 mEq/L (3.5-5.1); Sodium 145 mEq/L (136-145); Total Protein 6.7 g/dL (6.4-8.9); eGFR For African Americans > 60 (> 60); eGFR For Non-African Americans 57 (> 60)
[2019-06-27] MEDS: levoFLOXacin 750 MG TABLET PO SCH (19:14)
[2019-06-27] MEDS ORDERED: Haloperidol Lactate 5 MG/ML VIAL IVP PRN (19:35)
[2019-06-27] MEDS: Loratadine 10 MG TABLET PO SCH (21:40)
[2019-06-28] MEDS: Ipratropium/Albuterol Neb 3 ML IH SCH ×2 (03:24→10:34)
[2019-06-28] MEDS: *HR* Heparin 5,000 UNIT/ML VIAL SQ SCH (06:17)
[2019-06-28] MEDS: amLODIPine 5 MG TABLET PO SCH (07:36)
[2019-06-28 08:21] VITALS: BP 122/76
== END 2019-06-28 11:18 | disposition short-term general hospital (02) | DRG 193 ==
LOC: EMEROOARM 08:23 → 3ANU 13:14 → SUATTDRO 13:14 → 3ANU 13:49
PROVIDERS: ADMIT Internal Medicine; ATTEND Internal Medicine

== ENCOUNTER 2019-11-22 11:30 | Inpatient (IN) ==
[2019-11-22 12:44] LABS: Hematocrit 41.7 % (35.3-44.9); Hemoglobin 13.1 g/dL (11.5-15.4); Mean Corpuscular HGB Conc 31.4 g/dL (31.6-35.5); Mean Corpuscular Hemoglobin 29.9 pg (28.0-33.3); Mean Corpuscular Volume 95.2 fL (83.0-100.0); Mean Platelet Volume 10.8 fL (9.4-12.4); Platelet Count 212 K/mcL (140-400); Red Blood Count 4.38 M/mcL (3.82-4.97); Red Cell Distribution Width 13.7 % (11.5-14.5); White Blood Count 6.2 K/mcL (4.3-11.1)
[2019-11-22 12:53] LABS: Alanine Aminotransferase 22 Units/L (7-52); Albumin 3.8 g/dL (3.5-5.7); Albumin/Globulin Ratio 1.3 (1.1-2.2); Alkaline Phosphatase 91 Units/L (34-104); Aspartate Amino Transferase 46 Units/L (13-39); BUN/Creatinine Ratio 40 (6-26); Bilirubin,Direct 0.1 mg/dL (0.0-0.2); Bilirubin,Indirect 0.4 mg/dL (0.0-1.0); Bilirubin,Total 0.5 mg/dL (0.3-1.0); Blood Urea Nitrogen 36 mg/dL (8-23); Calcium 9.4 mg/dL (8.6-10.3); Carbon Dioxide 27 mEq/L (23-29); Chloride 105 mEq/L (98-107); Glucose 96 mg/dL (70-105); Lipase 34 Units/L (11-82); Osmolality,Calculated 292 (280-300); Potassium 4.2 mEq/L (3.5-5.1); Sodium 137 mEq/L (136-145); Total Protein 6.8 g/dL (6.4-8.9); eGFR For African Americans > 60 (> 60); eGFR For Non-African Americans 59 (> 60)
[2019-11-22 13:12] LABS: Bilirubin,Urine Negative (Negative); Blood,Urine Negative (Negative); Clarity,Urine Cloudy (Clear); Color,Urine Yellow (Yellow); Glucose,Urine (UA) Normal (Normal); Ketones,Urine Trace mg/dL (Negative); Leukocyte Esterase,Urine Small (Negative); Nitrite,Urine Negative (Negative); Protein,Urine Trace mg/dL (Neg-Trace); Specific Gravity,Urine 1.026 (1.010-1.025); Urobilinogen,Urine Normal (Normal)
[2019-11-22 13:14] LABS: Bacteria,Urine None Seen per hpf (None-Few); Hyaline Casts,Urine Few per lpf (None-Few); Squamous Epithelial Cell,Urine Many per lpf (None-Few)
[2019-11-22 13:53] LABS: Troponin I < 0.03 ng/mL (< 0.04)
[2019-11-22] MEDS ORDERED: *HR* LORazepam 1 MG TABLET PO ONE (15:12)
[2019-11-22] MEDS ORDERED: *HR* OxyCODONE Immed Rel 5 MG TABLET PO PRN (16:06)
[2019-11-22] MEDS ORDERED: Naloxone 0.4 MG/ML INJ IVP PRN (16:06)
[2019-11-22] MEDS ORDERED: Acetaminophen 325 MG TABLET PO PRN (16:06)
[2019-11-22] MEDS ORDERED: Ondansetron 4 MG/2 ML VIAL IVP PRN (16:06)
[2019-11-22] MEDS ORDERED: 0.9 % Sodium Chloride 1,000 ML IVC SCH (16:30)
[2019-11-22] MEDS ORDERED: 0.9 % Sodium Chloride 1,000 ML ONE (17:11)
[2019-11-22] MEDS ORDERED: *HR* Heparin 5,000 UNIT/ML VIAL ONE (17:11)
[2019-11-22] MEDS: *HR* Heparin 5,000 UNIT/ML VIAL SQ SCH (17:12)
[2019-11-22] MEDS: Melatonin 3 MG TABLET PO SCH (20:44)
[2019-11-22] MEDS: QUEtiapine Fumarate 25 MG TABLET PO SCH (20:45)
[2019-11-22] MEDS: Loratadine 10 MG TABLET PO SCH (20:45)
[2019-11-22] MEDS ORDERED: Budesonide/Formoterol 80/4.5 1 PUFF INH IH SCH (22:00)
[2019-11-23] MEDS: *HR* Heparin 5,000 UNIT/ML VIAL SQ SCH (07:04)
[2019-11-23 07:47] LABS: Basophils % 0.8 %; Eosinophils # 0.3 K/mcL (0.0-0.6); Eosinophils % 6.7 %; Hemoglobin 12.6 g/dL (11.5-15.4); Immature Granulocytes % 0.3 % (0-4); Lymphocytes # 1.4 K/mcL (0.6-4.6); Lymphocytes % 34.9 %; Mean Corpuscular HGB Conc 30.7 g/dL (31.6-35.5); Mean Corpuscular Hemoglobin 29.1 pg (28.0-33.3); Mean Corpuscular Volume 94.7 fL (83.0-100.0); Mean Platelet Volume 11.3 fL (9.4-12.4); Monocytes # 0.3 K/mcL (0.0-1.3); Monocytes % 8.5 %; Neutrophils # 1.9 K/mcL (1.6-8.9); Platelet Count 212 K/mcL (140-400); Red Blood Count 4.33 M/mcL (3.82-4.97); Red Cell Distribution Width 13.9 % (11.5-14.5); Segmented Neutrophils % 48.8 %; White Blood Count 3.9 K/mcL (4.3-11.1)
[2019-11-23 07:57] LABS: BUN/Creatinine Ratio 27 (6-26); Blood Urea Nitrogen 22 mg/dL (8-23); Carbon Dioxide 25 mEq/L (23-29); Chloride 108 mEq/L (98-107); Glucose 74 mg/dL (70-105); Osmolality,Calculated 290 (280-300); Potassium 3.7 mEq/L (3.5-5.1); Sodium 139 mEq/L (136-145); eGFR For African Americans > 60 (> 60); eGFR For Non-African Americans > 60 (> 60)
[2019-11-23] MEDS: Cyanocobalamin (B-12) 1,000 MCG TABLET PO SCH (08:04)
[2019-11-23] MEDS: amLODIPine 5 MG TABLET PO SCH (08:05)
[2019-11-23] MEDS: Loratadine 10 MG TABLET PO SCH (18:19)
[2019-11-23] MEDS: Budesonide/Formoterol 80/4.5 1 PUFF INH IH SCH (20:21)
[2019-11-23] MEDS: Melatonin 3 MG TABLET PO SCH (21:47)
[2019-11-23] MEDS: QUEtiapine Fumarate 25 MG TABLET PO SCH (21:47)
[2019-11-24] MEDS: Budesonide/Formoterol 80/4.5 1 PUFF INH IH SCH (07:59)
[2019-11-24] MEDS: amLODIPine 5 MG TABLET PO SCH (08:07)
[2019-11-24] MEDS: Cyanocobalamin (B-12) 1,000 MCG TABLET PO SCH (08:07)
[2019-11-24] MEDS ORDERED: amLODIPine 5 MG TABLET PO ONE (11:55)
[2019-11-24 14:19] VITALS: BP 133/69
[2019-11-25] MEDS ORDERED: amLODIPine 5 MG TABLET PO SCH (08:00)
== END 2019-11-24 16:30 | disposition home health service (06) | DRG 392 ==
LOC: EMEROOARM 11:30 → 3ANU 11:30 → SUATTDRO 11-23 16:49
PROVIDERS: ADMIT Internal Medicine; ATTEND Internal Medicine

== ENCOUNTER 2019-12-26 13:23 | Observation (INO) ==
[2019-12-26 13:54] LABS: Bacteria,Urine Few per hpf (None-Few); Bilirubin,Urine Negative (Negative); Blood,Urine Negative (Negative); Clarity,Urine Turbid (Clear); Color,Urine Yellow (Yellow); Glucose,Urine (UA) Normal (Normal); Hyaline Casts,Urine Few per lpf (None Seen); Ketones,Urine Negative (Negative); Leukocyte Esterase,Urine Negative (Negative); Mucus,Urine Few per lpf (None-Few); Nitrite,Urine Negative (Negative); PH,Urine 5.5 pH Units (5.0-8.0); Protein,Urine Trace mg/dL (Neg-Trace); RBC,Urine 0-3 per hpf (0-3); Specific Gravity,Urine 1.025 (1.010-1.025); Squamous Epithelial Cell,Urine Few per hpf (None-Few); Urobilinogen,Urine Normal (Normal); WBC,Urine 0-3 per hpf (0-3)
[2019-12-26 14:05] LABS: Basophils % 0.6 %; Eosinophils # 0.4 K/mcL (0.0-0.6); Eosinophils % 6.4 %; Hematocrit 42.2 % (35.3-44.9); Hemoglobin 13.1 g/dL (11.5-15.4); Immature Granulocytes % 0.2 % (0-4); Lymphocytes # 1.3 K/mcL (0.6-4.6); Lymphocytes % 24.7 %; Mean Corpuscular Hemoglobin 29.7 pg (28.0-33.3); Mean Corpuscular Volume 95.7 fL (83.0-100.0); Mean Platelet Volume 10.9 fL (9.4-12.4); Monocytes # 0.4 K/mcL (0.0-1.3); Monocytes % 6.4 %; Neutrophils # 3.4 K/mcL (1.6-8.9); Platelet Count 183 K/mcL (140-400); Red Blood Count 4.41 M/mcL (3.82-4.97); Red Cell Distribution Width 14.5 % (11.5-14.5); Segmented Neutrophils % 61.7 %; White Blood Count 5.4 K/mcL (4.3-11.1)
[2019-12-26 14:07] LABS: INR 0.9; Prothrombin Time 9.9 Seconds (9.4-12.1)
[2019-12-26 14:10] LABS: Activated Partial Thrombo Time 23.8 Seconds (26.0-36.0)
[2019-12-26 14:36] LABS: BUN/Creatinine Ratio 27 (6-26); Blood Urea Nitrogen 39 mg/dL (8-23); Calcium 8.9 mg/dL (8.6-10.3); Carbon Dioxide 21 mEq/L (23-29); Chloride 109 mEq/L (98-107); Glucose 187 mg/dL (70-105); Osmolality,Calculated 306 (280-300); Potassium 3.6 mEq/L (3.5-5.1); Sodium 141 mEq/L (136-145); Troponin I < 0.03 ng/mL (< 0.04); eGFR For African Americans 43 (> 60); eGFR For Non-African Americans 36 (> 60)
[2019-12-26] MEDS ORDERED: 0.9 % Sodium Chloride 1,000 ML IVC SCH ×2 (15:30→17:49)
[2019-12-26] MEDS ORDERED: Naloxone 0.4 MG/ML INJ IVP PRN (17:24)
[2019-12-26] MEDS ORDERED: Acetaminophen 325 MG TABLET PO PRN (17:52)
[2019-12-26] MEDS: levETIRAcetam 250 MG TABLET PO SCH (18:22)
[2019-12-26] MEDS ORDERED: QUEtiapine Fumarate 25 MG TABLET PO SCH (19:00)
[2019-12-26] MEDS ORDERED: Loratadine 10 MG TABLET PO SCH (19:00)
[2019-12-26] MEDS: Budesonide/Formoterol 80/4.5 1 PUFF INH IH SCH (20:07)
[2019-12-27] MEDS: levETIRAcetam 250 MG TABLET PO SCH (05:30)
[2019-12-27 06:42] LABS: Hematocrit 37.9 % (35.3-44.9); Mean Corpuscular HGB Conc 30.1 g/dL (31.6-35.5); Mean Corpuscular Hemoglobin 28.8 pg (28.0-33.3); Mean Corpuscular Volume 95.7 fL (83.0-100.0); Mean Platelet Volume 11.1 fL (9.4-12.4); Platelet Count 179 K/mcL (140-400); Red Blood Count 3.96 M/mcL (3.82-4.97); Red Cell Distribution Width 14.6 % (11.5-14.5); White Blood Count 5.9 K/mcL (4.3-11.1)
[2019-12-27 06:43] LABS: Hemoglobin 11.4 g/dL (11.5-15.4)
[2019-12-27 07:11] LABS: BUN/Creatinine Ratio 35 (6-26); Blood Urea Nitrogen 33 mg/dL (8-23); Calcium 8.3 mg/dL (8.6-10.3); Carbon Dioxide 22 mEq/L (23-29); Chloride 114 mEq/L (98-107); Cholesterol 185 mg/dL (< 200); Glucose 95 mg/dL (70-105); HDL Cholesterol 46 mg/dL (40-59); LDL Cholesterol,Calculated 118 mg/dL (< 100); Osmolality,Calculated 303 (280-300); Potassium 3.7 mEq/L (3.5-5.1); Sodium 143 mEq/L (136-145); Triglycerides 104 mg/dL (< 150); eGFR For African Americans > 60 (> 60); eGFR For Non-African Americans 57 (> 60)
[2019-12-27] MEDS: Budesonide/Formoterol 80/4.5 1 PUFF INH IH SCH (07:47)
[2019-12-27] MEDS ORDERED: amLODIPine 5 MG TABLET PO SCH (08:00)
[2019-12-27] MEDS ORDERED: Cyanocobalamin (B-12) 1,000 MCG TABLET PO SCH (08:00)
[2019-12-27 09:34] LABS: Estimated Average Glucose 143 mg/dl; Hemoglobin A1C 6.6 %
[2019-12-27 10:40] VITALS: BP 131/68
== END 2019-12-27 16:23 | disposition other institution (70) ==
LOC: EMEROOARM 13:23 → 3BNU 13:23
PROVIDERS: ADMIT Internal Medicine; ATTEND Internal Medicine

== ENCOUNTER 2020-01-29 12:14 | Inpatient (IN) ==
[2020-01-29] MEDS ORDERED: 0.9 % Sodium Chloride 1,000 ML IV ONE (12:28)
[2020-01-29] MEDS ORDERED: 0.9 % Sodium Chloride 2,000 ML ONE (12:30)
[2020-01-29 13:14] LABS: Basophils % 0.6 %; Eosinophils # 0.4 K/mcL (0.0-0.6); Hematocrit 42.3 % (35.3-44.9); Hemoglobin 12.8 g/dL (11.5-15.4); Immature Granulocytes % 0.2 % (0-4); Lymphocytes # 2.1 K/mcL (0.6-4.6); Lymphocytes % 34.5 %; Mean Corpuscular HGB Conc 30.3 g/dL (31.6-35.5); Mean Corpuscular Volume 95.9 fL (83.0-100.0); Mean Platelet Volume 11.2 fL (9.4-12.4); Monocytes # 0.6 K/mcL (0.0-1.3); Monocytes % 9.5 %; Platelet Count 190 K/mcL (140-400); Red Blood Count 4.41 M/mcL (3.82-4.97); Red Cell Distribution Width 14.6 % (11.5-14.5); Segmented Neutrophils % 49.2 %; White Blood Count 6.2 K/mcL (4.3-11.1)
[2020-01-29 13:27] LABS: Prothrombin Time 11.5 Seconds (9.4-12.1)
[2020-01-29 13:28] LABS: Bacteria,Urine Many per hpf (None-Few); Bilirubin,Urine Negative (Negative); Blood,Urine Trace (Negative); Clarity,Urine Turbid (Clear); Color,Urine Yellow (Yellow); Glucose,Urine (UA) Normal (Normal); Ketones,Urine Negative (Negative); Leukocyte Esterase,Urine Large (Negative); Mucus,Urine Many per lpf (None-Few); Nitrite,Urine Positive (Negative); PH,Urine 5.5 pH Units (5.0-8.0); Protein,Urine Trace mg/dL (Neg-Trace); RBC,Urine 0-3 per hpf (0-3); Specific Gravity,Urine 1.023 (1.010-1.025); Urobilinogen,Urine Normal (Normal); WBC,Urine 50-100 per hpf (0-3)
[2020-01-29 13:30] LABS: Activated Partial Thrombo Time 30.8 Seconds (26.0-36.0)
[2020-01-29 13:37] LABS: Alanine Aminotransferase 8 Units/L (7-52); Albumin 3.7 g/dL (3.5-5.7); Albumin/Globulin Ratio 1.2 (1.1-2.2); Alkaline Phosphatase 71 Units/L (34-104); Aspartate Amino Transferase 11 Units/L (13-39); BUN/Creatinine Ratio 38 (6-26); Bilirubin,Direct 0.1 mg/dL (0.0-0.2); Bilirubin,Indirect 0.5 mg/dL (0.0-1.0); Bilirubin,Total 0.6 mg/dL (0.3-1.0); Blood Urea Nitrogen 43 mg/dL (8-23); Calcium 9.7 mg/dL (8.6-10.3); Carbon Dioxide 28 mEq/L (23-29); Chloride 112 mEq/L (98-107); Glucose 83 mg/dL (70-105); Lipase 40 Units/L (11-82); Osmolality,Calculated 310 (280-300); Potassium 4.5 mEq/L (3.5-5.1); Sodium 145 mEq/L (136-145); Total Protein 6.7 g/dL (6.4-8.9); Troponin I < 0.03 ng/mL (< 0.04); eGFR For African Americans 57 (> 60); eGFR For Non-African Americans 47 (> 60)
[2020-01-29] MEDS ORDERED: cefTRIAXone 1,000 MG in Water for inj. (sterile) 10 ML IVP ONE (13:46)
[2020-01-29] MEDS ORDERED: *HR* Promethazine 25 MG/ML VIAL IVP PRN (15:28)
[2020-01-29] MEDS ORDERED: Acetaminophen 325 MG TABLET PO PRN (15:28)
[2020-01-29 15:35] LABS: Adenovirus Not Detected (Not Detect); Coronavirus 229E Not Detected (Not Detect); Coronavirus HKU1 Not Detected (Not Detect); Coronavirus NL63 Not Detected (Not Detect); Coronavirus OC43 Not Detected (Not Detect)
[2020-01-29 15:36] LABS: Bordetella Pertussis Not Detected (Not Detect); Chlamydophila pneumoniae Not Detected (Not Detect); Human Metapneumovirus Not Detected (Not Detect); Human Rhinovirus/Enterovirus Not Detected (Not Detect); Influenza A Subtype 2009 H1 Not Detected (Not Detect); Influenza B Not Detected (Not Detect); Mycoplasma pneumoniae Not Detected (Not Detect); Parainfluenza Virus 1 Not Detected (Not Detect); Parainfluenza Virus 2 Not Detected (Not Detect); Parainfluenza Virus 3 Not Detected (Not Detect); Parainfluenza Virus 4 Not Detected (Not Detect); Respiratory Syncytial Virus Not Detected (Not Detect)
[2020-01-29 16:06] LABS: VBG HCO3 26 mEq/L (21-27); VBG PCO2 45 mmHg (41-51); VBG PH 7.37 pH Units (7.32-7.42); VBG PO2 192 mmHg (25-50)
[2020-01-29] MEDS ORDERED: D5% in Water 1,000 ML IVC PRN (17:10)
[2020-01-29] MEDS ORDERED: Dextrose Gel 15 GM/37.5 ML TUBE PO PRN ×2 (17:10)
[2020-01-29] MEDS ORDERED: *HR* Dextrose 50 % in Water (Vial) 50 ML VIAL IVP PRN (17:10)
[2020-01-29] MEDS: cefTRIAXone 1,000 MG in Water for inj. (sterile) 10 ML IVP SCH (17:27)
[2020-01-29] MEDS: Insulin LISPRO 300 UNITS/3 ML VIAL SQ SCH ×2 (17:30→21:47)
[2020-01-30 06:12] LABS: BUN/Creatinine Ratio 39 (6-26); Blood Urea Nitrogen 35 mg/dL (8-23); Calcium 9.2 mg/dL (8.6-10.3); Carbon Dioxide 24 mEq/L (23-29); Chloride 111 mEq/L (98-107); Glucose 85 mg/dL (70-105); Magnesium 1.9 mg/dL (1.6-2.6); Osmolality,Calculated 299 (280-300); Phosphorous 2.9 mg/dL (2.7-4.5); Potassium 4.5 mEq/L (3.5-5.1); Sodium 141 mEq/L (136-145); eGFR For African Americans > 60 (> 60); eGFR For Non-African Americans > 60 (> 60)
[2020-01-30 06:29] LABS: Hematocrit 41.9 % (35.3-44.9); Hemoglobin 12.9 g/dL (11.5-15.4); Mean Corpuscular HGB Conc 30.8 g/dL (31.6-35.5); Mean Corpuscular Hemoglobin 29.4 pg (28.0-33.3); Mean Corpuscular Volume 95.4 fL (83.0-100.0); Mean Platelet Volume 11.2 fL (9.4-12.4); Platelet Count 179 K/mcL (140-400); Red Blood Count 4.39 M/mcL (3.82-4.97); Red Cell Distribution Width 13.8 % (11.5-14.5); White Blood Count 6.1 K/mcL (4.3-11.1)
[2020-01-30] MEDS: Insulin LISPRO 300 UNITS/3 ML VIAL SQ SCH ×4 (08:15→21:08)
[2020-01-30] MEDS ORDERED: Acetaminophen 325 MG TABLET PO PRN (12:54)
[2020-01-30] MEDS: levETIRAcetam 250 MG TABLET PO SCH ×2 (13:53→21:06)
[2020-01-30] MEDS: *HR* Heparin 5,000 UNIT/ML VIAL SQ SCH (17:55)
[2020-01-30] MEDS ORDERED: QUEtiapine Fumarate 25 MG TABLET PO SCH (19:00)
[2020-01-30] MEDS ORDERED: Loratadine 10 MG TABLET PO SCH (19:00)
[2020-01-30] MEDS: Budesonide/Formoterol 80/4.5 1 PUFF INH IH SCH (19:47)
[2020-01-31] MEDS: *HR* Heparin 5,000 UNIT/ML VIAL SQ SCH (06:19)
[2020-01-31] MEDS: Budesonide/Formoterol 80/4.5 1 PUFF INH IH SCH (07:02)
[2020-01-31] MEDS: levETIRAcetam 250 MG TABLET PO SCH (07:55)
[2020-01-31] MEDS: cefTRIAXone 1,000 MG in Water for inj. (sterile) 10 ML IVP SCH (07:56)
[2020-01-31] MEDS: Insulin LISPRO 300 UNITS/3 ML VIAL SQ SCH ×2 (07:58→13:42)
[2020-01-31] MEDS ORDERED: amLODIPine 5 MG TABLET PO SCH (08:00)
[2020-01-31] MEDS ORDERED: Cyanocobalamin (B-12) 1,000 MCG TABLET PO SCH (08:00)
[2020-01-31 10:25] VITALS: BP 114/65
[2020-02-02] MEDS ORDERED: Ergocalciferol (VIT D2) 50,000 UNIT (1.25MG) CAP PO SCH (08:00)
== END 2020-01-31 14:16 | disposition home health service (06) | DRG 689 ==
LOC: EMEROOARM 12:14 → 3BNU 12:14 → SUATTDRO 16:26 → 3BNU 17:21
PROVIDERS: ADMIT Family Medicine; ATTEND Internal Medicine